=== PATIENT | male | born 1945 | race African-American/Black ===

== ENCOUNTER 2018-12-12 16:56 | Inpatient (IN) | payer MEDICARE ==
--- NOTE | 2018-12-12 17:18 | ED Physician Chart ---
ED Chief Complaint/HPI - Patient Information Date Seen:: 12/12/18 Time Seen:: 17:00 Chief Complaint:: Agitation History of Present Illness:: onset x 3 days of agitation and aggressive behavior; no report of trauma, SIs, H /As, neck pain, C/P, SOB, Abd. Pain, or urinary s/s Historian:: Patient Review:: Nurse's Note Reviewed, Old Chart Reviewed, EMS run form Reviewed <Mina Traore - Last Filed: 12/12/18 17:36> - Patient Information Allergies:: Allergies Allergy/AdvReac Type Severity Reaction Status Date / Time No Known Allergies Allergy Verified 12/12/18 17:21 Vitals:: Vital Signs - 8 hr 12/12/18 17:21 Temp 98.6 F HR 64 RR 20 BP 145/83 O2 Sat % 98 <Pattie Sandoval - Last Filed: 12/12/18 19:25> ED Review of Systems - Review of Systems General/Constitutional: No fever, No chills, No weight loss, No weakness, No diaphoresis, No edema, No loss of appetite Skin: No skin lesions, No rash, No bruising Head: No headache, No light-headedness Eyes: No loss of vision, No pain, No diplopia ENT: No earache, No nasal drainage, No sore throat, No tinnitus Neck: No neck pain, No swelling, No thyromegaly, No stiffness, No mass noted Cardio Vascular: No chest pain, No palpitations, No PND, No orthopnea, No edema Pulmonary: No SOB, No cough, No sputum, No wheezing GI: No nausea, No vomiting, No diarrhea, No pain, No melena, No hematochezia, No constipation, No hematemesis G/U: No dysuria, No frequency, No hematuria, No nacturia Musculoskeletal: No bone or joint pain, No back pain, No muscle pain Endocrine: No polyuria, No polydipsia Psychiatric: No prior psych history, No depression, No anxiety, No suicidal ideation, No homicidal ideation, No auditory hallucination, No visual hallucination Hematopoietic: No bruising, No lymphadenopathy Allergic/Immuno: No urticaria, No angioedema Neurological: No syncope, No focal symptoms, No weakness, No paresthesia, No headache, No seizure, No dizziness, No confusion, No vertigo <Mina Traore Last Filed: 12/12/18 17:36> ED Past Medical History - Past Medical History Obtainable: Yes Past Medical History: HTN, Dyslipidemia, Dementia Family History: HTN Social History: Non Smoker, No Alcohol, No Drug Use, Single, Care Facility Surgical History: None Psychiatricy History: Bipolar, Dementia Medication: Reviewed <Mina Traore Filed: 12/12/18 17:36> Family Medical History - Family Member Father History Unknown: Yes <Mina Traore Filed: 12/12/18 17:36> ED Physical Exam - Physical Examination General/Constitutional: Awake, Well-developed, well-nourished, Alert, No distress, GCS 15, Non-toxic appearing, Ambulatory Head: Atraumatic Eyes: Lids, conjuctiva normal, PERRL, EOMI Skin: Nl inspection, No rash, No skin lesions, No ecchymosis, Well hydrated, No lymphadenopathy ENMT: External ears, nose nl, TM canals nl, Nasal exam nl, Lips, teeth, gums nl , Oropharynx nl, Tonsils nl Neck: Nontender, Full ROM w/o pain, No JVD, No nuchal rigidity, No bruit, No mass, No stridor Other Neck comments:: supple; no meningeal signs; no cervical tenderness; no bruits Respiratory: Nl effort/Exclusion, Clear to Auscultation, No Wheeze/Rhonchi/Rales Cardio Vascular: RRR, No murmur, gallop, rubs, NL S1 S2, Carotid/Femoral/Distal pulses equal bilaterally GI: No tenderness/rebounding/guarding, No organomegaly, No hernia, Normal BS's, Nondistended, No mass/bruits, No McBurney tenderness Other GI comments:: no pulsatile masses : No CVA tenderness Extremities: No tenderness or effusion, Full ROM, normal strength in all extremities, No edema, Normal digits & nails Neuro/Psych: Alert/oriented, DTR's symmetric, Normal sensory exam, Normal motor strength, Judgement/insight normal, Mood normal, Normal gait, No focal deficits Other Neuro/Psych comments:: + Psychomotor Agitation; no SIs; Mood/Affect: Labile Misc: Normal back, No paraspinal tenderness <Mina Traore - Last Filed: 12/12/18 17:36> ED Labs/Radiology/EKG Results - Lab Results Comments:: Reviewed - EKG Interpretations EKG Time:: 17:22 Rate & Rhythm: 64; NSR Comments:: LVH; non-specific st-t changes <Mina Traore - Last Filed: 12/12/18 17:36> - Lab Results Results: Laboratory Tests 12/12/18 12/12/18 12/12/18 17:30 17:30 17:30 WBC 6.5 RBC 4.21 Hgb 11.1 L Hct 33.6 L MCV 79.8 L MCH 26.4 L MCHC Differential 33.1 RDW 15.4 Plt Count 116 L MPV 9.3 Neutrophils % 60.1 Lymphocytes % 22.6 Monocytes % 12.1 H Eosinophils % 4.6 Basophils % 0.6 Sodium 139 Potassium 4.6 Chloride 110 H Carbon Dioxide 19.8 L Anion Gap 13.8 BUN 67 H Creatinine 2.9 H Est GFR ( Amer) TNP Est GFR (Non-Af Amer) TNP BUN/Creatinine Ratio 23.1 Glucose 119 H Calcium 9.1 Total Bilirubin 0.3 AST 14 ALT 14 Alkaline Phosphatase 358 H Troponin I 0.03 Total Protein 6.2 Albumin 3.4 L Globulin 2.8 Albumin/Globulin Ratio 1.2 Triglycerides 56 Cholesterol 99 LDL Cholesterol Direct 44 L HDL Cholesterol 40 Salicylates < 25.0 L Acetaminophen < 10.0 L Ethyl Alcohol < 10 <Pattie Sandoval - Last Filed: 12/12/18 19:25> ED Assessment - Assessment General Assessment: DEHYDRATION RENAL INSUFF <Pattie Sandoval - Last Filed: 12/12/18 19:25> ED Septic Shock - . Is Septic Shock (SBP<90, OR Lactate>4 mmol\L) present?: No <Mina Traore - Last Filed: 12/12/18 17:36> - <6hrs of presentation: Vital Signs: Vital Signs - 8 hr 12/12/18 17:21 Temp 98.6 F HR 64 RR 20 BP 145/83 O2 Sat % 98 <Pattie Sandoval - Last Filed: 12/12/18 19:25> ED Reassessment (Disposition) - Reassessment Reassessment Condition:: Improved - Diagnosis Diagnosis:: Agitation; Medical Clearance <Mina Traore - Last Filed: 12/12/18 17:36> - Aftercare/Follow up Instructions Notes:: PT GIVEN NS FLUIDS FOR AZOTEMIA PRERENAL - Patient Disposition Discharge/Transfer:: Acute Care w/in this hosp Condition at Disposition:: Stable <Pattie Sandoval - Last Filed: 12/12/18 19:25>
[2018-12-12 17:44] LABS: % BASOPHILS 0.6 % (0.0-2.0); % EOSINOPHILS 4.6 % (0.0-5.0); % LYMPHOCYTES 22.6 % (20.0-50.0); % MONOCYTES 12.1 % (2.0-10.0); % NEUTROPHILS 60.1 % (40.0-80.0); EOSINOPHILE ABSOLUTE 0.3 Th/cmm (0.1-0.4); HEMATOCRIT 33.6 % (41.0-60); HEMOGLOBIN 11.1 gm/dL (12-16); LYMPHOCYTE ABSOLUTE 1.5 Th/cmm (1.5-3.0); MEAN CELL VOLUME 79.8 fl (80-99); MEAN CORPUSCULAR HEMOGLOBIN 26.4 pg (27.0-31.0); MEAN CORPUSCULAR HGB CONC 33.1 pg (28.0-36.0); MEAN PLATELET VOLUME 9.3 fl; MONOCYTE ABSOLUTE 0.8 Th/cmm (0.3-1.0); NEUTROPHILE ABSOLUTE 3.9 Th/cmm (1.8-8.0); PLATELET COUNT 116 Th/cmm (150-400); RED BLOOD COUNT 4.21 Mil/cmm (3.80-5.80); RED CELL DISTRIBUTION WIDTH 15.4 % (11.5-20.0); WHITE BLOOD COUNT 6.5 Th/cmm (4.8-10.8)
[2018-12-12 18:19] LABS: ALB/GLOB RATIO 1.2 (1.0-1.8); ALBUMIN 3.4 gm/dL (4.2-5.5); ALKALINE PHOSPHATASE 358 U/L (34-104); ANION GAP 13.8 (7.0-16.0); BILIRUBIN,TOTAL 0.3 mg/dL (0.3-1.0); BUN - UREA NITROGEN 67 mg/dL (7-25); CALCIUM SERUM 9.1 mg/dL (8.6-10.3); CARBON DIOXIDE 19.8 mEq/L (21.0-31.0); CHLORIDE 110 mEq/L (98-107); CHOLESTEROL 99 mg/dL (<200); CREATININE - SERUM 2.9 mg/dL (0.7-1.3); GLUCOSE 119 mg/dL (70-105); HDL -HIGH DENSITY LIPOPROTEIN 40 mg/dL (23-92); POTASSIUM SERUM 4.6 mEq/L (3.5-5.1); SGOT 14 U/L (13-39); SGPT/ALT 14 U/L (7-52); SODIUM SERUM 139 mEq/L (136-145); TOTAL PROTEIN,SERUM 6.2 gm/dL (6.0-8.3); TRIGLYCERIDES 56 mg/dL (<150)
[2018-12-12 18:23] LABS: ACETAMINOPHEN < 10.0 ug/mL (10.0-30.0); SALICYLATES (ASPIRIN) < 25.0 mg/L (30.0-100.0)
[2018-12-12] MEDS ORDERED: Sodium Chloride 0.9% 1,000 ML IV ONE ×2 (19:20)
[2018-12-12] MEDS ORDERED: Sodium Chloride 0.9% 250 ML IV ONE (19:20)
[2018-12-12 19:56] LABS: URINE SOURCE CLEAN C
[2018-12-12 20:11] LABS: URINE BILIRUBIN NEGATIVE (NEGATIVE); URINE BLOOD NEGATIVE (NEGATIVE); URINE GLUCOSE (UA) NEGATIVE (NEGATIVE); URINE KETONE NEGATIVE (NEGATIVE); URINE LEUKOCYTE ESTERASE SMALL (NEGATIVE); URINE NITRATE NEGATIVE (NEGATIVE); URINE PROTEIN NEGATIVE (NEGATIVE); URINE UROBILINOGEN 0.2 E.U./dL (0.2 - 1.0)
[2018-12-12 20:30] LABS: URINE CLARITY CLEAR (CLEAR); URINE COLOR YELLOW; URINE MICROSCOPIC INDICATED? YES
[2018-12-12 20:39] LABS: AMPHETAMINE URINE NEGATIVE (NEGATIVE); BARBITURATES URINE NEGATIVE (NEGATIVE); BENZODIAZEPINES QUAL URINE NEGATIVE (NEGATIVE); CANNABINOID THC NEGATIVE (NEGATIVE); COCAINE METABOLITE QUAL URINE NEGATIVE (NEGATIVE); METHADONE URINE NEGATIVE (NEGATIVE); METHAMPHETAMINES QUAL URINE NEGATIVE (NEGATIVE); OPIATES (MORPHINE) QUAL. URINE NEGATIVE (NEGATIVE); PHENCYCLIDINE (PCP) URINE NEGATIVE (NEGATIVE); TRICYCLICS (TCA) QUAL. URINE NEGATIVE (NEGATIVE)
[2018-12-12] MEDS ORDERED: cefTRIAXone 1 GM in Sodium Chloride 0.9% 50 ML IV ONE (20:39)
[2018-12-12 20:47] LABS: URINE RBC NONE SEEN /hpf (0-5); URINE WBC 0-2 /hpf (0-5)
[2018-12-12 20:48] LABS: URINE BACTERIA OCCASIONAL /hpf (NONE SEEN); URINE EPITHELIAL CELLS NONE SEEN /lpf (FEW)
[2018-12-12 22:33] VITALS: BP 136/84
[2018-12-13] MEDS ORDERED: Maalox 30 mL Cup PO PRN (11:58)
[2018-12-13] MEDS ORDERED: Magnesium Hydroxide (MOM) 30 mL UDC PO PRN (11:58)
[2018-12-13] MEDS ORDERED: Dextrose 50% 50 mL Abboject IVP PRN (12:07)
[2018-12-13] MEDS ORDERED: GLUCAGON HCl 1 MG KIT IM PRN (12:07)
--- NOTE | 2018-12-13 13:13 | History & Physical ---
ADMIT DATE: 12/12/2018 CHIEF COMPLAINT: Medical evaluation and clearance. HISTORY OF PRESENT ILLNESS: This is a 73-year-old -[place] male with history of diabetes, hypertension, hypercholesterolemia, anemia, admitted under the service of Dr. Serrato. The patient is a poor historian. Denies any fevers, chills, night sweats, weight loss, or chest pain. PAST MEDICAL HISTORY: As mentioned in history of present illness. PAST SURGICAL HISTORY: Unable to tell me any other surgical history. ALLERGIES: No known drug allergies. MEDICATIONS: Aripiprazole, Haldol, Tylenol, Norvasc, Calcitriol, Colace, famotidine, iron, Lantus, Tradjenta, ____, Cozaar, and magnesium, Namenda, multivitamins, omega 3. FAMILY HISTORY: Noncontributory. SOCIAL HISTORY: The patient is a longterm patient, requiring 24-hour total care. The patient states that he is a smoker and drinker. REVIEW OF SYSTEMS: This is limited secondary to the patient's current mental state. We will try to obtain more detailed review of systems at a later date by talking to family members, not listed on case sheet. We will try to get information from facility in [place], #[phone]. PHYSICAL EXAMINATION: VITAL SIGNS: Blood pressure 140/80, respirations 20, pulse 70, and temperature 98.0. GENERAL: Elderly male, appears chronically ill. NECK: Supple. No mass. LUNGS: Equal breath sounds; otherwise, clear to auscultation. HEART: Regular rate and rhythm with systolic ejection murmur. ABDOMEN: Soft, globular. EXTREMITIES: Positive excoriations. NEUROLOGIC: Limited. LABORATORY DATA: WBC 6, hemoglobin 11, platelets 116. Sodium 139, potassium 4.6, BUN 67, creatinine 2.9, and blood sugar 118, ____. Albumin 3.4. Small leukocytes. Otherwise negative urine toxicology. ASSESSMENT AND PLAN: Anemia, renal insufficiency, hypercholesterolemia, hypertension, diabetes, thrombocytopenia. We will continue the patient on ADA diet and insulin sliding scale. We will continue with fingersticks before meals and at bedtime. We will briefly review the patient's medications. We will monitor for any signs or symptoms of hypoglycemia. Case was discussed with the patient as well as nursing staff. We will continue to follow with you Dr. Serrato. JOB# [id number]
[2018-12-13] MEDS: Ferrous Sulfate 325 MG TAB PO SCH (16:29)
[2018-12-13] MEDS: Calcium Carb/Vit D 500 mg/200 U Tab PO SCH (16:29)
[2018-12-13] MEDS: Fish Oil 1,000 MG SGL PO SCH (16:29)
[2018-12-13] MEDS: Insulin Glargine 100 units/ml 10ml Vial SUBQ SCH (16:30)
[2018-12-13] MEDS: INSULIN LISPRO SLIDING SCALE 100 UNITS/ML UNIT SUBQ SCH ×2 (16:46→21:33)
[2018-12-14] MEDS: INSULIN LISPRO SLIDING SCALE 100 UNITS/ML UNIT SUBQ SCH ×4 (06:41→21:38)
[2018-12-14] MEDS: Fish Oil 1,000 MG SGL PO SCH ×2 (08:14→16:52)
[2018-12-14] MEDS: Ferrous Sulfate 325 MG TAB PO SCH ×2 (08:14→16:53)
[2018-12-14] MEDS: Calcium Carb/Vit D 500 mg/200 U Tab PO SCH ×2 (08:32→16:52)
[2018-12-14] MEDS: Insulin Glargine 100 units/ml 10ml Vial SUBQ SCH ×2 (08:33→16:53)
[2018-12-14] MEDS: Multivitamin Tab PO SCH (08:52)
--- NOTE | 2018-12-14 11:44 | Psychiatric Evaluation ---
DATE OF SERVICE: 12/12/2018 IDENTIFYING DATA: The patient is a ____[id number] -[place] ____ on a conservatorship, admitted over here for acute agitation and inappropriate behavior. CHIEF COMPLAINT: "I don't care. I need to go home." HISTORY OF PRESENT ILLNESS: This is the first psychiatric hospitalization to [facility] for this patient who is reported to have been acting very erratic and has been displaying inappropriate behavior such as masturbating and the patient has also been reported to have been losing lot of weight. The patient has been seen by the ____ longterm where he came from, and the patient is reported to have been getting aggressive and for the past couple of weeks and is also been displaying inappropriate behavior and is losing weight and the patient at this time not providing much of information and the patient has been stating that he needs to go back to his place. The patient is responding to internal stimuli. Sleep and appetite prior to the hospitalization are reported to be poor. PAST PSYCHIATRIC HISTORY: Details are not known. MEDICAL HISTORY: Physical examination is requested to be done by Dr. Sabillon. SUBSTANCE ABUSE HISTORY: None. PHYSICAL OR SEXUAL ABUSE HISTORY: None at this time. STRENGTH AND ASSETS: The patient is motivated. MENTAL STATUS EXAMINATION: The patient is a ____[id number], looking stated age, superficially cooperative. Eye contact is poor. Mood is noted to be irritable. Affect is constricted. Insight and judgment at this time are noted to be still impaired. Impulse control is noted to be poor. Details about the prior patient's medications are not known at this time. The patient has been getting easily upset when I am asking the details of the medications. The patient is going to be started on a very low dose of the Seroquel at this time for the aggressive behavior and the patient is going to be followed and the patient's short and long-term are noted to be poor. The patient's attention span and concentration are noted to be poor. The patient has been getting easily frustrated and agitated. DIAGNOSTIC IMPRESSION: AXIS I: Psychotic disorder, not otherwise specified. IB: Dementia and behavioral change, secondary trait. AXIS II: None. AXIS III: As per Dr. Sabillon. IMMEDIATE TREATMENT PLAN: The patient is going to be observed with the medication changes and followed up with supportive therapy. [facility]# [id number]
--- NOTE | 2018-12-14 12:10 | Internal Medicine Prog Note ---
Internal Medicine Subjective - Subjective Patient seen and examined:: with staff, chart reviewed Patient is:: asleep, eyes closed, in bed, denies any new complaints, confused Per staff patient has:: no adverse event, no episodes of fall, poor appetite, unstable gait, tolerating meds Internal Medicine Objective - Results Result Diagrams: 12/12/18 17:30 12/12/18 17:30 Recent Labs: Laboratory Last Values WBC 6.5 Th/cmm (4.8-10.8) 12/12/18 17:30 RBC 4.21 Mil/cmm (3.80-5.80) 12/12/18 17:30 Hgb 11.1 gm/dL (12-16) L 12/12/18 17:30 Hct 33.6 % (41.0-60) L 12/12/18 17:30 MCV 79.8 fl (80-99) L 12/12/18 17:30 MCH 26.4 pg (27.0-31.0) L 12/12/18 17: MCHC Differential 33.1 pg (28.0-36.0) 12/12/18 17:30 RDW 15.4 % (11.5-20.0) 12/12/18 17: Plt Count 116 Th/cmm (150-400) L 12/12/18 17:30 MPV 9.3 fl 12/12/18 17:30 Neutrophils % 60.1 % (40.0-80.0) 12/12/18 17:30 Lymphocytes % 22.6 % (20.0-50.0) 12/12/18: Monocytes % 12.1 % (2.0-10.0) H 12/12/18 17:30 Eosinophils % 4.6 % (0.0-5.0) 12/12/18 17: Basophils % 0.6 % (0.0-2.0) 12/12/18 17:30 Sodium 139 mEq/L (136-145) 12/12/18 17:30 Potassium 4.6 mEq/L (3.5-5.1) 12/12/18 17:30 Chloride 110 mEq/L (98-107) H 12/12/18 17:30 Carbon Dioxide 19.8 mEq/L (21.0-31.0) L 04/15/19 17:30 Anion Gap 13.8 (7.0-16.0) 12/12/18 17:30 BUN 67 mg/dL (7-25) H 12/12/18 17:30 Creatinine 2.9 mg/dL (0.7-1.3) H 12/12/18 17:30 Est GFR ( Amer) TNP 12/12/18 17:30 Est GFR (Non-Af Amer) TNP 12/12/18 17:30 BUN/Creatinine Ratio 23.1 12/12/18 17:30 Glucose 119 mg/dL (70-105) H 12/12/18 17:30 POC Glucose 78 MG/DL (70 - 105) 12/14/18 11:29 Calcium 9.1 mg/dL (8.6-10.3) 12/12/18 17:30 Total Bilirubin 0.3 mg/dL (0.3-1.0) 12/12/18 17:30 AST 14 U/L (13-39) 12/12/18 17:30 ALT 14 U/L (7-52) 12/12/18 17:30 Alkaline Phosphatase 358 U/L (34-104) H 12/12/18 17:30 Troponin I 0.03 ng/mL (0.01-0.05) 12/12/18 17:30 Total Protein 6.2 gm/dL (6.0-8.3) 12/12/18 17:30 Albumin 3.4 gm/dL (4.2-5.5) L 12/12/18 17:30 Globulin 2.8 gm/dL 12/12/18 17:30 Albumin/Globulin Ratio 1.2 (1.0-1.8) 12/12/18 17:30 Triglycerides 56 mg/dL (<150) 12/12/18 17:30 Cholesterol 99 mg/dL (<200) 12/12/18 17:30 LDL Cholesterol Direct 44 mg/dL (75-193) L 12/12/18 17:30 HDL Cholesterol 40 mg/dL (23-92) 12/12/18 17:30 TSH 1.48 uIU/ml (0.34-5.60) 12/12/18 17:30 Urine Source CLEAN C 12/12/18 18:40 Urine Color YELLOW 12/12/18 18:40 Urine Clarity CLEAR (CLEAR) 12/12/18 18:40 Urine pH 6.0 (4.6 - 8.0) 12/12/18 18:40 Ur Specific [place] <= 1.005 (1.005-1.030) 12/12/18 18:40 Urine Protein NEGATIVE mg/dL (NEGATIVE) 12/12/18 18:40 Urine Glucose (UA) NEGATIVE mg/dL (NEGATIVE) 12/12/18 18:40 Urine Ketones NEGATIVE mg/dL (NEGATIVE) 12/12/18 18:40 Urine Blood NEGATIVE (NEGATIVE) 12/12/18 18:40 Urine Nitrate NEGATIVE (NEGATIVE) 12/12/18 18:40 Urine Bilirubin NEGATIVE (NEGATIVE) 12/12/18 18:40 Urine Urobilinogen 0.2 E.U./dL (0.2 - 1.0) 12/12/18 18:40 Ur Leukocyte Esterase SMALL (NEGATIVE) H 12/12/18 18:40 Urine RBC NONE SEEN /hpf (0-5) 12/12/18 18:40 Urine WBC 0-2 /hpf (0-5) 12/12/18 18:40 Ur Epithelial Cells NONE SEEN /lpf (FEW) 12/12/18 18:40 Urine Bacteria OCCASIONAL /hpf (NONE SEEN) 12/12/18 18:40 Salicylates < 25.0 mg/L (30.0-100.0) L 12/12/18 17:30 Urine Opiates Screen NEGATIVE (NEGATIVE) 12/12/18 18:40 Urine Methadone Screen NEGATIVE (NEGATIVE) 12/12/18 18:40 Acetaminophen < 10.0 ug/mL (10.0-30.0) L 12/12/18 17:30 Ur Barbiturates Screen NEGATIVE (NEGATIVE) 12/12/18 18:40 Ur Tricyclics Screen NEGATIVE (NEGATIVE) 12/12/18 18:40 Ur Phencyclidine Scrn NEGATIVE (NEGATIVE) 12/12/18 18:40 Amphetamines Screen NEGATIVE (NEGATIVE) 12/12/18 18:40 U Methamphetamines Scrn NEGATIVE (NEGATIVE) 12/12/18 18:40 U Benzodiazepines Scrn NEGATIVE (NEGATIVE) 12/12/18 18:40 U Cocaine Metab Screen NEGATIVE (NEGATIVE) 12/12/18 18:40 U Cannabinoids Screen NEGATIVE (NEGATIVE) 12/12/18 18:40 Ethyl Alcohol < 10 mg/dL (0-10) 12/12/18 17:30 - Physical Exam Vitals and I&O: Vital Signs Temp 98.2 F 12/14/18 04:47 Pulse 68 12/14/18 08:51 Resp 20 12/14/18 04:47 BP 137/82 12/14/18 08:51 Pulse Ox 98 12/14/18 04:47 Intake & Output 12/13/18 12/14/18 12/14/18 18:59 06:59 18:59 Intake Total 1600 240 Balance 1600 240 Intake: Oral 1600 240 Other: # Voids 4 2 # Bowel Movements 0 0 Active Medications: Current Medications Acetaminophen (Tylenol) 650 mg PO Q4H PRN PRN Reason: pain/ fever>100 Al Hydrox/Mg Hydrox/Simethicone (Maalox) 30 ml PO Q4H PRN PRN Reason: gi upset Stop: 02/11/19 11:57 Amlodipine Besylate (Norvasc) 10 mg PO DAILY TAMIA Stop: 02/12/19 08:59 Last Admin: 12/14/18 08:18 Dose: 10 mg Calcitriol (Rocaltrol) 0.25 mcg PO MWF TAMIA Stop: 02/12/19 08:59 Last Admin: 12/14/18 08:51 Dose: 0.25 mcg Calcium/Vitamin D (Oscal W/Vitamin D) 1 tab PO BID TAMIA Stop: 02/11/19 16:59 Last Admin: 12/14/18 08:32 Dose: 1 tab Dextrose (D50w) 50 ml IVP PRN PRN PRN Reason: BS below 70&not tolerate po Stop: 02/11/19 12:06 Dextrose (Glutose 40%) 18.75 gm PO PRN PRN PRN Reason: BS below 70 & tolerate po Stop: 02/11/19 12:06 Docusate Sodium (Colace) 100 mg PO BID TAMIA Stop: 02/11/19 16:59 Last Admin: 12/14/18 08:33 Dose: 100 mg Famotidine (Pepcid) 20 mg PO DAILY TAMIA Stop: 02/12/19 08:59 Last Admin: 12/14/18 08:51 Dose: 20 mg Ferrous Sulfate (Iron) 325 mg PO BID TAMIA Stop: 02/11/19 16:59 Last Admin: 12/14/18 08:14 Dose: 325 mg Fish Oil ([place] 3) 1,000 mg PO BID TAMIA Stop: 02/11/19 16:59 Last Admin: 12/14/18 08:14 Dose: 1,000 mg Glucagon (Glucagen) 1 mg IM PRN PRN PRN Reason: BS below 70&dextrose ineffecti Stop: 02/11/19 12:06 Insulin Glargine (Lantus Insulin) 6 units SUBQ BID TAMIA Stop: 02/11/19 16:59 Last Admin: 12/14/18 08:33 Dose: 6 units Insulin Human Lispro (Humalog Insulin Sliding Scale) 0 units SUBQ ACHS TAMIA; Protocol Stop: 02/11/19 16:29 Last Admin: 12/14/18 11:34 Dose: Not Given Lorazepam (Ativan) 0.5 mg PO Q4HR PRN; Protocol PRN Reason: Anxiety Stop: 01/11/19 22:32 Last Admin: 12/14/18 08:14 Dose: 0.5 mg Losartan Potassium (Cozaar) 25 mg PO DAILY TAMIA Stop: 02/12/19 08:59 Last Admin: 12/14/18 08:51 Dose: 25 mg Magnesium Hydroxide (Milk Of Magnesia) 30 ml PO HS PRN PRN Reason: Constipation Stop: 02/11/19 11:57 Memantine (Namenda) 5 mg PO DAILY TAMIA Stop: 02/12/19 08:59 Last Admin: 12/14/18 08:52 Dose: 5 mg Multivitamins/Vitamin C (Theragran) 1 tab PO DAILY TAMIA Stop: 02/12/19 08:59 Last Admin: 12/14/18 08:52 Dose: 1 tab Quetiapine Fumarate (Seroquel) 12.5 mg PO HS TAMIA; Protocol Stop: 02/11/19 20:59 Zolpidem Tartrate (Ambien) 5 mg PO HS PRN PRN Reason: Insomnia Stop: 02/10/19 22:32 Last Admin: 12/13/18 21:34 Dose: 5 mg General: demented HEENT: NC/AT, PERRLA, EOMI Neck: Supple, No JVD Lungs: CTAB Cardiovascular: RRR, Normal S1, Normal S2 Abdomen: soft, non-tender, globular, positive bowel sound Extremities: excoriation, contracture Neurological: no change Internal Medicine Assmt/Plan - Assessment Assessment: ASSESSMENT AND PLAN: Anemia, renal insufficiency, hypercholesterolemia, hypertension, diabetes, thrombocytopenia. bedbound - Plan Plan: PLAN: We will continue the patient on ADA diet and insulin sliding scale. We will continue with fingersticks before meals and at bedtime. We will briefly review the patient's medications. We will monitor for any signs or symptoms of hypoglycemia. Case was discussed with the patient as well as nursing staff. We will continue to follow closely
--- NOTE | 2018-12-15 08:34 | Consultation ---
DATE OF CONSULTATION: 12/14/2018 REFERRING PHYSICIAN: Kimo Mckenna M.D. TYPE OF CONSULTATION: Psychology. HISTORY OF PRESENT ILLNESS: The patient is a 73-year-old -[place] male. The following is by record review as well as by the patient's self report. The patient is being admitted due to acute agitation and sexually inappropriate behavior. The patient is on conservatorship. The staff at the patient's facility reports that the patient had been exhibiting public masturbation at his placement. The staff at his facility also reported he had become increasingly aggressive toward other residents as well as staff. Upon interview, the patient is not making much sense. The patient is stating that he does not care to answer any questions and needs to go home. The patient may possibly be responding to internal stimuli. The patient did not answer questions about suicidal ideation, plan or intention at the time of this clinical interview. PAST MEDICAL HISTORY: Please see history and physical by Dr. Sabillon. PAST PSYCHIATRIC HISTORY: Records are unavailable. Details are unknown. SUBSTANCE ABUSE HISTORY: The patient declined to answer these questions. PSYCHOSOCIAL HISTORY: The patient did not answer questions about occupational or educational history or about marital status or family members involved in his care. The patient did not answer questions about having a history of physical or sexual abuse. The patient did not answer questions about current legal problems. The patient appears to be quite confused. The patient is denying his aggressive behavior as well as displaying public masturbation. MENTAL STATUS EXAMINATION: The patient appears to be older than his stated age. Attitude is uncooperative. Eye contact is poor. Mood is irritable. Affect is constricted. Thought process shows to be concrete and somewhat confused. The patient is not making much sense. The patient is denying the behaviors that staff had reported. The patient did not answer questions about suicidal ideation, plan or intention. The patient did not answer questions about experiencing auditory or visual hallucinations. The patient is getting easily upset during the clinical interview. Impulse control is inadequate. Concentration is noted to be poor. The patient did not participate in the memory assessment and became increasingly frustrated. Sensorium is alert and oriented to self only. The patient did not participate in the interpretation of proverbs and continued to refuse to answer clinical interview questions. Insight is impaired. Judgment is impaired. DIAGNOSTIC IMPRESSION: AXIS I: 1. Psychotic disorder, not otherwise specified. 2. Dementia with behavioral disturbance. AXIS II: Deferred. AXIS III: Per Dr. Sabillon. TREATMENT PLAN: The patient has been seen by Dr. Mckenna for psychiatric evaluation and further management of the patient's psychotropic medications. We will provide supportive psychotherapy to include reality orientation, differentiation and integration. We will provide de-escalation and limit setting. We will provide motivational enhancement for the patient to follow through with staff direction and to become compliant and to stay compliant with all aspects of his care and treatment. We will provide coping strategies for phase of life issues as well as for chronic severe mental illness. We will encourage the patient to demonstrate emotional and self-regulation and to verbalizes concerns versus acting out and specifically inappropriate sexual behaviors. Thank you, Dr. Mckenna, for this consult and the opportunity to participate in this patient's care. JOB# [id number] MTDD
[2018-12-15] MEDS: INSULIN LISPRO SLIDING SCALE 100 UNITS/ML UNIT SUBQ SCH ×4 (08:56→21:59)
[2018-12-15] MEDS: Multivitamin Tab PO SCH (09:13)
[2018-12-15] MEDS: Fish Oil 1,000 MG SGL PO SCH ×2 (09:13→17:59)
[2018-12-15] MEDS: Ferrous Sulfate 325 MG TAB PO SCH ×2 (09:14→18:00)
[2018-12-15] MEDS: Calcium Carb/Vit D 500 mg/200 U Tab PO SCH ×2 (09:15→17:59)
[2018-12-15] MEDS: Insulin Glargine 100 units/ml 10ml Vial SUBQ SCH ×2 (09:17→17:19)
--- NOTE | 2018-12-15 11:46 | Internal Medicine Prog Note ---
Internal Medicine Subjective - Subjective Patient seen and examined:: with staff, chart reviewed Patient is:: asleep, eyes closed, in bed, denies any new complaints, confused Per staff patient has:: no adverse event, no episodes of fall, poor appetite, unstable gait, tolerating meds Internal Medicine Objective - Results Result Diagrams: 12/12/18 17:30 12/12/18 17:30 Recent Labs: Laboratory Last Values WBC 6.5 Th/cmm (4.8-10.8) 12/12/18 17:30 RBC 4.21 Mil/cmm (3.80-5.80) 12/12/18 17:30 Hgb 11.1 gm/dL (12-16) L 12/12/18 17:30 Hct 33.6 % (41.0-60) L 12/12/18 17:30 MCV 79.8 fl (80-99) L 12/12/18 17:30 MCH 26.4 pg (27.0-31.0) L 12/12/18 17: MCHC Differential 33.1 pg (28.0-36.0) 12/12/18 17:30 RDW 15.4 % (11.5-20.0) 12/12/18 17: Plt Count 116 Th/cmm (150-400) L 12/12/18 17:30 MPV 9.3 fl 12/12/18 17:30 Neutrophils % 60.1 % (40.0-80.0) 12/12/18 17:30 Lymphocytes % 22.6 % (20.0-50.0) 12/12/18: Monocytes % 12.1 % (2.0-10.0) H 12/12/18 17:30 Eosinophils % 4.6 % (0.0-5.0) 12/12/18 17: Basophils % 0.6 % (0.0-2.0) 12/12/18 17:30 Sodium 139 mEq/L (136-145) 12/12/18 17:30 Potassium 4.6 mEq/L (3.5-5.1) 12/12/18 17:30 Chloride 110 mEq/L (98-107) H 12/12/18 17:30 Carbon Dioxide 19.8 mEq/L (21.0-31.0) L 04/15/19 17:30 Anion Gap 13.8 (7.0-16.0) 12/12/18 17:30 BUN 67 mg/dL (7-25) H 12/12/18 17:30 Creatinine 2.9 mg/dL (0.7-1.3) H 12/12/18 17:30 Est GFR ( Amer) TNP 12/12/18 17:30 Est GFR (Non-Af Amer) TNP 12/12/18 17:30 BUN/Creatinine Ratio 23.1 12/12/18 17:30 Glucose 119 mg/dL (70-105) H 12/12/18 17:30 POC Glucose 98 MG/DL (70 - 105) 12/15/18 06:51 Calcium 9.1 mg/dL (8.6-10.3) 12/12/18 17:30 Total Bilirubin 0.3 mg/dL (0.3-1.0) 12/12/18 17:30 AST 14 U/L (13-39) 12/12/18 17:30 ALT 14 U/L (7-52) 12/12/18 17:30 Alkaline Phosphatase 358 U/L (34-104) H 12/12/18 17:30 Troponin I 0.03 ng/mL (0.01-0.05) 12/12/18 17:30 Total Protein 6.2 gm/dL (6.0-8.3) 12/12/18 17:30 Albumin 3.4 gm/dL (4.2-5.5) L 12/12/18 17:30 Globulin 2.8 gm/dL 12/12/18 17:30 Albumin/Globulin Ratio 1.2 (1.0-1.8) 12/12/18 17:30 Triglycerides 56 mg/dL (<150) 12/12/18 17:30 Cholesterol 99 mg/dL (<200) 12/12/18 17:30 LDL Cholesterol Direct 44 mg/dL (75-193) L 12/12/18 17:30 HDL Cholesterol 40 mg/dL (23-92) 12/12/18 17:30 TSH 1.48 uIU/ml (0.34-5.60) 12/12/18 17:30 Urine Source CLEAN C 12/12/18 18:40 Urine Color YELLOW 12/12/18 18:40 Urine Clarity CLEAR (CLEAR) 12/12/18 18:40 Urine pH 6.0 (4.6 - 8.0) 12/12/18 18:40 Ur Specific [place] <= 1.005 (1.005-1.030) 12/12/18 18:40 Urine Protein NEGATIVE mg/dL (NEGATIVE) 12/12/18 18:40 Urine Glucose (UA) NEGATIVE mg/dL (NEGATIVE) 12/12/18 18:40 Urine Ketones NEGATIVE mg/dL (NEGATIVE) 12/12/18 18:40 Urine Blood NEGATIVE (NEGATIVE) 12/12/18 18:40 Urine Nitrate NEGATIVE (NEGATIVE) 12/12/18 18:40 Urine Bilirubin NEGATIVE (NEGATIVE) 12/12/18 18:40 Urine Urobilinogen 0.2 E.U./dL (0.2 - 1.0) 12/12/18 18:40 Ur Leukocyte Esterase SMALL (NEGATIVE) H 12/12/18 18:40 Urine RBC NONE SEEN /hpf (0-5) 12/12/18 18:40 Urine WBC 0-2 /hpf (0-5) 12/12/18 18:40 Ur Epithelial Cells NONE SEEN /lpf (FEW) 12/12/18 18:40 Urine Bacteria OCCASIONAL /hpf (NONE SEEN) 12/12/18 18:40 Salicylates < 25.0 mg/L (30.0-100.0) L 12/12/18 17:30 Urine Opiates Screen NEGATIVE (NEGATIVE) 12/12/18 18:40 Urine Methadone Screen NEGATIVE (NEGATIVE) 12/12/18 18:40 Acetaminophen < 10.0 ug/mL (10.0-30.0) L 12/12/18 17:30 Ur Barbiturates Screen NEGATIVE (NEGATIVE) 12/12/18 18:40 Ur Tricyclics Screen NEGATIVE (NEGATIVE) 12/12/18 18:40 Ur Phencyclidine Scrn NEGATIVE (NEGATIVE) 12/12/18 18:40 Amphetamines Screen NEGATIVE (NEGATIVE) 12/12/18 18:40 U Methamphetamines Scrn NEGATIVE (NEGATIVE) 12/12/18 18:40 U Benzodiazepines Scrn NEGATIVE (NEGATIVE) 12/12/18 18:40 U Cocaine Metab Screen NEGATIVE (NEGATIVE) 12/12/18 18:40 U Cannabinoids Screen NEGATIVE (NEGATIVE) 12/12/18 18:40 Ethyl Alcohol < 10 mg/dL (0-10) 12/12/18 17:30 - Physical Exam Vitals and I&O: Vital Signs Temp 97.3 F 12/15/18 06:45 Pulse 62 12/15/18 09:16 Resp 20 12/15/18 06:45 BP 157/84 12/15/18 09:16 Pulse Ox 100 12/15/18 06:45 Intake & Output 12/14/18 12/15/18 12/15/18 18:59 06:59 18:59 Intake Total 120 Balance 120 Intake: Oral 120 Other: # Voids 2 # Bowel Movements 0 Active Medications: Current Medications Acetaminophen (Tylenol) 650 mg PO Q4H PRN PRN Reason: pain/ fever>100 Al Hydrox/Mg Hydrox/Simethicone (Maalox) 30 ml PO Q4H PRN PRN Reason: gi upset Stop: 02/11/19 11:57 Amlodipine Besylate (Norvasc) 10 mg PO DAILY TAMIA Stop: 02/12/19 08:59 Last Admin: 12/15/18 09:15 Dose: 10 mg Calcitriol (Rocaltrol) 0.25 mcg PO MWF TAMIA Stop: 02/12/19 08:59 Last Admin: 12/14/18 08:51 Dose: 0.25 mcg Calcium/Vitamin D (Oscal W/Vitamin D) 1 tab PO BID TAMIA Stop: 02/11/19 16:59 Last Admin: 12/15/18 09:15 Dose: 1 tab Dextrose (D50w) 50 ml IVP PRN PRN PRN Reason: BS below 70&not tolerate po Stop: 02/11/19 12:06 Dextrose (Glutose 40%) 18.75 gm PO PRN PRN PRN Reason: BS below 70 & tolerate po Stop: 02/11/19 12:06 Docusate Sodium (Colace) 100 mg PO BID TAMIA Stop: 02/11/19 16:59 Last Admin: 12/15/18 09:14 Dose: 100 mg Famotidine (Pepcid) 20 mg PO DAILY TAMIA Stop: 02/12/19 08:59 Last Admin: 12/15/18 09:14 Dose: 20 mg Ferrous Sulfate (Iron) 325 mg PO BID TAMIA Stop: 02/11/19 16:59 Last Admin: 12/15/18 09:14 Dose: 325 mg Fish Oil ([place] 3) 1,000 mg PO BID TAMIA Stop: 02/11/19 16:59 Last Admin: 12/15/18 09:13 Dose: 1,000 mg Glucagon (Glucagen) 1 mg IM PRN PRN PRN Reason: BS below 70&dextrose ineffecti Stop: 02/11/19 12:06 Insulin Glargine (Lantus Insulin) 6 units SUBQ BID TAMIA Stop: 02/11/19 16:59 Last Admin: 12/15/18 09:17 Dose: Not Given Insulin Human Lispro (Humalog Insulin Sliding Scale) 0 units SUBQ ACHS TAMIA; Protocol Stop: 02/11/19 16:29 Last Admin: 12/15/18 08:56 Dose: Not Given Lorazepam (Ativan) 0.5 mg PO Q4HR PRN; Protocol PRN Reason: Anxiety Stop: 01/11/19 22:32 Last Admin: 12/15/18 09:14 Dose: 0.5 mg Losartan Potassium (Cozaar) 25 mg PO DAILY TAIMA Stop: 02/12/19 08:59 Last Admin: 12/15/18 09:16 Dose: 25 mg Magnesium Hydroxide (Milk Of Magnesia) 30 ml PO HS PRN PRN Reason: Constipation Stop: 02/11/19 11:57 Memantine (Namenda) 5 mg PO DAILY TAMIA Stop: 02/12/19 08:59 Last Admin: 12/15/18 09:14 Dose: 5 mg Multivitamins/Vitamin C (Theragran) 1 tab PO DAILY TAMIA Stop: 02/12/19 08:59 Last Admin: 12/15/18 09:13 Dose: 1 tab Quetiapine Fumarate (Seroquel) 25 mg PO HS TAMIA; Protocol Stop: 02/12/19 20:59 Zolpidem Tartrate (Ambien) 5 mg PO HS PRN PRN Reason: Insomnia Stop: 02/10/19 22:32 Last Admin: 12/14/18 21:39 Dose: 5 mg General: demented HEENT: NC/AT, PERRLA, EOMI Neck: Supple, No JVD Lungs: CTAB Cardiovascular: RRR, Normal S1, Normal S2 Abdomen: soft, non-tender, globular, positive bowel sound Extremities: excoriation, contracture Neurological: no change Internal Medicine Assmt/Plan - Assessment Assessment: ASSESSMENT AND PLAN: Anemia, renal insufficiency, hypercholesterolemia, hypertension, diabetes, thrombocytopenia. bedbound - Plan Plan: PLAN: We will continue the patient on ADA diet and insulin sliding scale. We will continue with fingersticks before meals and at bedtime. We will briefly review the patient's medications. We will monitor for any signs or symptoms of hypoglycemia. Case was discussed with the patient as well as nursing staff. We will continue to follow closely
--- NOTE | 2018-12-15 14:44 | Progress Notes ---
DATE: 12/14/2018 SUBJECTIVE: The patient was seen, still confused, anxious, irritable, still disrobe and trying to take his clothes off, has hypersexual behavior, but he is taking his medications. Appetite and sleep are fair. MENTAL STATUS EXAM: Speech is minimal, irrelevant to topic. Affect is superficial, can become irritable easily. The patient still with some paranoia. Insight is limited. ASSESSMENT AND PLAN: We will increase Seroquel to 25 mg p.o. at bedtime. Continue supportive measures. JOB# [id number]
--- NOTE | 2018-12-15 23:26 | Progress Notes ---
DATE: 12/15/2018 SUBJECTIVE: The patient was seen, remains irritable. Continues to have some anger outbursts episodes where he is trying to take his clothes off or expose himself to nursing staff. The patient continues to require redirecting by staff. ASSESSMENT: The patient continues to be paranoid and anxious and could not be cared for at a lower level of care. PLAN: Continue hospitalization and Seroquel was increased to 25 mg p.o. at bedtime. JOB# [id number]
[2018-12-16] MEDS: INSULIN LISPRO SLIDING SCALE 100 UNITS/ML UNIT SUBQ SCH ×4 (06:46→21:09)
[2018-12-16] MEDS: Fish Oil 1,000 MG SGL PO SCH ×2 (08:42→16:20)
[2018-12-16] MEDS: Multivitamin Tab PO SCH (08:44)
[2018-12-16] MEDS: Calcium Carb/Vit D 500 mg/200 U Tab PO SCH ×2 (08:45→16:21)
[2018-12-16] MEDS: Ferrous Sulfate 325 MG TAB PO SCH ×2 (08:45→16:21)
[2018-12-16] MEDS: Insulin Glargine 100 units/ml 10ml Vial SUBQ SCH ×2 (09:55→16:21)
--- NOTE | 2018-12-16 10:33 | Internal Medicine Prog Note ---
Internal Medicine Subjective - Subjective Patient seen and examined:: with staff, chart reviewed Patient is:: asleep, eyes closed, in bed, denies any new complaints, confused Per staff patient has:: no adverse event, no episodes of fall, poor appetite, unstable gait, tolerating meds Internal Medicine Objective - Results Result Diagrams: 12/12/18 17:30 12/12/18 17:30 Recent Labs: Laboratory Last Values WBC 6.5 Th/cmm (4.8-10.8) 12/12/18 17:30 RBC 4.21 Mil/cmm (3.80-5.80) 12/12/18 17:30 Hgb 11.1 gm/dL (12-16) L 12/12/18 17:30 Hct 33.6 % (41.0-60) L 12/12/18 17:30 MCV 79.8 fl (80-99) L 12/12/18 17:30 MCH 26.4 pg (27.0-31.0) L 12/12/18 17: MCHC Differential 33.1 pg (28.0-36.0) 12/12/18 17:30 RDW 15.4 % (11.5-20.0) 12/12/18 17: Plt Count 116 Th/cmm (150-400) L 12/12/18 17:30 MPV 9.3 fl 12/12/18 17:30 Neutrophils % 60.1 % (40.0-80.0) 12/12/18 17:30 Lymphocytes % 22.6 % (20.0-50.0) 12/12/18: Monocytes % 12.1 % (2.0-10.0) H 12/12/18 17:30 Eosinophils % 4.6 % (0.0-5.0) 12/12/18 17: Basophils % 0.6 % (0.0-2.0) 12/12/18 17:30 Sodium 139 mEq/L (136-145) 12/12/18 17:30 Potassium 4.6 mEq/L (3.5-5.1) 12/12/18 17:30 Chloride 110 mEq/L (98-107) H 12/12/18 17:30 Carbon Dioxide 19.8 mEq/L (21.0-31.0) L 04/15/19 17:30 Anion Gap 13.8 (7.0-16.0) 12/12/18 17:30 BUN 67 mg/dL (7-25) H 12/12/18 17:30 Creatinine 2.9 mg/dL (0.7-1.3) H 12/12/18 17:30 Est GFR ( Amer) TNP 12/12/18 17:30 Est GFR (Non-Af Amer) TNP 12/12/18 17:30 BUN/Creatinine Ratio 23.1 12/12/18 17:30 Glucose 119 mg/dL (70-105) H 12/12/18 17:30 POC Glucose 75 MG/DL (70 - 105) 12/16/18 06:32 Calcium 9.1 mg/dL (8.6-10.3) 12/12/18 17:30 Total Bilirubin 0.3 mg/dL (0.3-1.0) 12/12/18 17:30 AST 14 U/L (13-39) 12/12/18 17:30 ALT 14 U/L (7-52) 12/12/18 17:30 Alkaline Phosphatase 358 U/L (34-104) H 12/12/18 17:30 Troponin I 0.03 ng/mL (0.01-0.05) 12/12/18 17:30 Total Protein 6.2 gm/dL (6.0-8.3) 12/12/18 17:30 Albumin 3.4 gm/dL (4.2-5.5) L 12/12/18 17:30 Globulin 2.8 gm/dL 12/12/18 17:30 Albumin/Globulin Ratio 1.2 (1.0-1.8) 12/12/18 17:30 Triglycerides 56 mg/dL (<150) 12/12/18 17:30 Cholesterol 99 mg/dL (<200) 12/12/18 17:30 LDL Cholesterol Direct 44 mg/dL (75-193) L 12/12/18 17:30 HDL Cholesterol 40 mg/dL (23-92) 12/12/18 17:30 TSH 1.48 uIU/ml (0.34-5.60) 12/12/18 17:30 Urine Source CLEAN C 12/12/18 18:40 Urine Color YELLOW 12/12/18 18:40 Urine Clarity CLEAR (CLEAR) 12/12/18 18:40 Urine pH 6.0 (4.6 - 8.0) 12/12/18 18:40 Ur Specific [place] <= 1.005 (1.005-1.030) 12/12/18 18:40 Urine Protein NEGATIVE mg/dL (NEGATIVE) 12/12/18 18:40 Urine Glucose (UA) NEGATIVE mg/dL (NEGATIVE) 12/12/18 18:40 Urine Ketones NEGATIVE mg/dL (NEGATIVE) 12/12/18 18:40 Urine Blood NEGATIVE (NEGATIVE) 12/12/18 18:40 Urine Nitrate NEGATIVE (NEGATIVE) 12/12/18 18:40 Urine Bilirubin NEGATIVE (NEGATIVE) 12/12/18 18:40 Urine Urobilinogen 0.2 E.U./dL (0.2 - 1.0) 12/12/18 18:40 Ur Leukocyte Esterase SMALL (NEGATIVE) H 12/12/18 18:40 Urine RBC NONE SEEN /hpf (0-5) 12/12/18 18:40 Urine WBC 0-2 /hpf (0-5) 12/12/18 18:40 Ur Epithelial Cells NONE SEEN /lpf (FEW) 12/12/18 18:40 Urine Bacteria OCCASIONAL /hpf (NONE SEEN) 12/12/18 18:40 Salicylates < 25.0 mg/L (30.0-100.0) L 12/12/18 17:30 Urine Opiates Screen NEGATIVE (NEGATIVE) 12/12/18 18:40 Urine Methadone Screen NEGATIVE (NEGATIVE) 12/12/18 18:40 Acetaminophen < 10.0 ug/mL (10.0-30.0) L 12/12/18 17:30 Ur Barbiturates Screen NEGATIVE (NEGATIVE) 12/12/18 18:40 Ur Tricyclics Screen NEGATIVE (NEGATIVE) 12/12/18 18:40 Ur Phencyclidine Scrn NEGATIVE (NEGATIVE) 12/12/18 18:40 Amphetamines Screen NEGATIVE (NEGATIVE) 12/12/18 18:40 U Methamphetamines Scrn NEGATIVE (NEGATIVE) 12/12/18 18:40 U Benzodiazepines Scrn NEGATIVE (NEGATIVE) 12/12/18 18:40 U Cocaine Metab Screen NEGATIVE (NEGATIVE) 12/12/18 18:40 U Cannabinoids Screen NEGATIVE (NEGATIVE) 12/12/18 18:40 Ethyl Alcohol < 10 mg/dL (0-10) 12/12/18 17:30 - Physical Exam Vitals and I&O: Vital Signs Temp 97.0 F 12/15/18 20:00 Pulse 80 12/15/18 20:00 Resp 20 12/15/18 20:00 BP 135/70 12/15/18 20:00 Pulse Ox 97 12/15/18 20:00 Intake & Output 12/15/18 12/16/18 12/16/18 18:59 06:59 18:59 Intake Total 1500 Balance 1500 Intake: Oral 1500 Other: # Voids 3 # Bowel Movements 0 Active Medications: Current Medications Acetaminophen (Tylenol) 650 mg PO Q4H PRN PRN Reason: pain/ fever>100 Al Hydrox/Mg Hydrox/Simethicone (Maalox) 30 ml PO Q4H PRN PRN Reason: gi upset Stop: 02/11/19 11:57 Amlodipine Besylate (Norvasc) 10 mg PO DAILY TAMIA Stop: 02/12/19 08:59 Last Admin: 12/16/18 08:42 Dose: Not Given Calcitriol (Rocaltrol) 0.25 mcg PO MWF TAMIA Stop: 02/12/19 08:59 Last Admin: 12/16/18 08:45 Dose: 0.25 mcg Calcium/Vitamin D (Oscal W/Vitamin D) 1 tab PO BID TAMIA Stop: 02/11/19 16:59 Last Admin: 12/16/18 08:45 Dose: 1 tab Dextrose (D50w) 50 ml IVP PRN PRN PRN Reason: BS below 70&not tolerate po Stop: 02/11/19 12:06 Dextrose (Glutose 40%) 18.75 gm PO PRN PRN PRN Reason: BS below 70 & tolerate po Stop: 02/11/19 12:06 Docusate Sodium (Colace) 100 mg PO BID TAMIA Stop: 02/11/19 16:59 Last Admin: 12/16/18 08:45 Dose: 100 mg Famotidine (Pepcid) 20 mg PO DAILY TAMIA Stop: 02/12/19 08:59 Last Admin: 12/16/18 08:44 Dose: 20 mg Ferrous Sulfate (Iron) 325 mg PO BID TAMIA Stop: 02/11/19 16:59 Last Admin: 12/16/18 08:45 Dose: 325 mg Fish Oil ([place] 3) 1,000 mg PO BID TAMIA Stop: 02/11/19 16:59 Last Admin: 12/16/18 08:42 Dose: 1,000 mg Glucagon (Glucagen) 1 mg IM PRN PRN PRN Reason: BS below 70&dextrose ineffecti Stop: 02/11/19 12:06 Insulin Glargine (Lantus Insulin) 6 units SUBQ BID TAMIA Stop: 02/11/19 16:59 Last Admin: 12/15/18 17:19 Dose: Not Given Insulin Human Lispro (Humalog Insulin Sliding Scale) 0 units SUBQ ACHS TAMIA; Protocol Stop: 02/11/19 16:29 Last Admin: 12/16/18 06:46 Dose: Not Given Lorazepam (Ativan) 0.5 mg PO Q4HR PRN; Protocol PRN Reason: Anxiety Stop: 01/11/19 22:32 Last Admin: 12/16/18 09:37 Dose: 0.5 mg Losartan Potassium (Cozaar) 25 mg PO DAILY TAMIA Stop: 02/12/19 08:59 Last Admin: 12/16/18 08:44 Dose: Not Given Magnesium Hydroxide (Milk Of Magnesia) 30 ml PO HS PRN PRN Reason: Constipation Stop: 02/11/19 11:57 Memantine (Namenda) 5 mg PO DAILY TAMIA Stop: 02/12/19 08:59 Last Admin: 12/16/18 08:44 Dose: 5 mg Multivitamins/Vitamin C (Theragran) 1 tab PO DAILY TAMIA Stop: 02/12/19 08:59 Last Admin: 12/16/18 08:44 Dose: 1 tab Quetiapine Fumarate (Seroquel) 25 mg PO HS TAMIA; Protocol Stop: 02/12/19 20:59 Last Admin: 12/15/18 21:34 Dose: 25 mg Zolpidem Tartrate (Ambien) 5 mg PO HS PRN PRN Reason: Insomnia Stop: 02/10/19 22:32 Last Admin: 12/15/18 21:34 Dose: 5 mg General: demented HEENT: NC/AT, PERRLA, EOMI Neck: Supple, No JVD Lungs: CTAB Cardiovascular: RRR, Normal S1, Normal S2 Abdomen: soft, non-tender, globular, positive bowel sound Extremities: excoriation, contracture Neurological: no change Internal Medicine Assmt/Plan - Assessment Assessment: ASSESSMENT AND PLAN: Anemia, renal insufficiency, hypercholesterolemia, hypertension, diabetes, thrombocytopenia. bedbound - Plan Plan: PLAN: We will continue the patient on ADA diet and insulin sliding scale. We will continue with fingersticks before meals and at bedtime. We will briefly review the patient's medications. We will monitor for any signs or symptoms of hypoglycemia. Case was discussed with the patient as well as nursing staff. We will continue to follow closely
--- NOTE | 2018-12-16 23:17 | Progress Notes ---
DATE: 12/16/2018 SUBJECTIVE: The patient was seen still disorganized, forgetful, confused, still with some irritability, and episodes where he is taking his clothes off, but he is easier to redirect today by staff. He is taking his medications. ASSESSMENT: The patient in psychotic phase. PLAN: Continue stabilization. Continue supportive measures. Continue to monitor closely. JOB# [id number]
[2018-12-17] MEDS: INSULIN LISPRO SLIDING SCALE 100 UNITS/ML UNIT SUBQ SCH ×4 (06:37→20:01)
[2018-12-17] MEDS: Calcium Carb/Vit D 500 mg/200 U Tab PO SCH ×2 (08:50→16:38)
[2018-12-17] MEDS: Multivitamin Tab PO SCH (08:51)
[2018-12-17] MEDS: Ferrous Sulfate 325 MG TAB PO SCH ×2 (08:51→16:38)
[2018-12-17] MEDS: Fish Oil 1,000 MG SGL PO SCH ×2 (08:51→16:38)
[2018-12-17] MEDS: Insulin Glargine 100 units/ml 10ml Vial SUBQ SCH ×2 (08:53→16:57)
--- NOTE | 2018-12-17 10:17 | Internal Medicine Prog Note ---
Internal Medicine Subjective - Subjective Service Date: 12/17/18 Patient is:: asleep, eyes closed, in bed, denies any new complaints, confused Per staff patient has:: no adverse event, no episodes of fall, poor appetite, unstable gait, tolerating meds Internal Medicine Objective - Results Result Diagrams: 12/12/18 17:30 12/12/18 17:30 Recent Labs: Laboratory Last Values WBC 6.5 Th/cmm (4.8-10.8) 12/12/18 17:30 RBC 4.21 Mil/cmm (3.80-5.80) 12/12/18 17:30 Hgb 11.1 gm/dL (12-16) L 12/12/18 17:30 Hct 33.6 % (41.0-60) L 12/12/18 17:30 MCV 79.8 fl (80-99) L 12/12/18 17:30 MCH 26.4 pg (27.0-31.0) L 12/12/18 17: MCHC Differential 33.1 pg (28.0-36.0) 12/12/18 17:30 RDW 15.4 % (11.5-20.0) 12/12/18 17:30 Plt Count 116 Th/cmm (150-400) L 12/12/18 17:30 MPV 9.3 fl 12/12/18 17:30 Neutrophils % 60.1 % (40.0-80.0) 12/12/18 17:30 Lymphocytes % 22.6 % (20.0-50.0) 12/12/18 17:30 Monocytes % 12.1 % (2.0-10.0) H 12/12/18 17:30 Eosinophils % 4.6 % (0.0-5.0) 12/12/18 17:30 Basophils % 0.6 % (0.0-2.0) 12/12/18 17:30 Sodium 139 mEq/L (136-145) 12/12/18 17:30 Potassium 4.6 mEq/L (3.5-5.1) 12/12/18 17:30 Chloride 110 mEq/L (98-107) H 12/12/18 17:30 Carbon Dioxide 19.8 mEq/L (21.0-31.0) L 12/12/18 17:30 Anion Gap 13.8 (7.0-16.0) 12/12/18 17:30 BUN 67 mg/dL (7-25) H 12/12/18 17:30 Creatinine 2.9 mg/dL (0.7-1.3) H 12/12/18 17:30 Est GFR ( Amer) TNP 12/12/18 17:30 Est GFR (Non-Af Amer) TNP 12/12/18 17:30 BUN/Creatinine Ratio 23.1 12/12/18 17:30 Glucose 119 mg/dL (70-105) H 12/12/18 17:30 POC Glucose 132 MG/DL (70 - 105) H 12/16/18 16:08 Calcium 9.1 mg/dL (8.6-10.3) 12/12/18 17:30 Total Bilirubin 0.3 mg/dL (0.3-1.0) 12/12/18 17:30 AST 14 U/L (13-39) 12/12/18 17:30 ALT 14 U/L (7-52) 12/12/18 17:30 Alkaline Phosphatase 358 U/L (34-104) H 12/12/18 17:30 Troponin I 0.03 ng/mL (0.01-0.05) 12/12/18 17:30 Total Protein 6.2 gm/dL (6.0-8.3) 12/12/18 17:30 Albumin 3.4 gm/dL (4.2-5.5) L 12/12/18 17:30 Globulin 2.8 gm/dL 12/12/18 17:30 Albumin/Globulin Ratio 1.2 (1.0-1.8) 12/12/18 17:30 Triglycerides 56 mg/dL (<150) 12/12/18 17:30 Cholesterol 99 mg/dL (<200) 12/12/18 17:30 LDL Cholesterol Direct 44 mg/dL (75-193) L 12/12/18 17:30 HDL Cholesterol 40 mg/dL (23-92) 12/12/18 17:30 TSH 1.48 uIU/ml (0.34-5.60) 12/12/18 17:30 Urine Source CLEAN C 12/12/18 18:40 Urine Color YELLOW 12/12/18 18:40 Urine Clarity CLEAR (CLEAR) 12/12/18 18:40 Urine pH 6.0 (4.6 - 8.0) 12/12/18 18:40 Ur Specific [place] <= 1.005 (1.005-1.030) 12/12/18 18:40 Urine Protein NEGATIVE mg/dL (NEGATIVE) 12/12/18 18:40 Urine Glucose (UA) NEGATIVE mg/dL (NEGATIVE) 12/12/18 18:40 Urine Ketones NEGATIVE mg/dL (NEGATIVE) 12/12/18 18:40 Urine Blood NEGATIVE (NEGATIVE) 12/12/18 18:40 Urine Nitrate NEGATIVE (NEGATIVE) 12/12/18 18:40 Urine Bilirubin NEGATIVE (NEGATIVE) 12/12/18 18:40 Urine Urobilinogen 0.2 E.U./dL (0.2 - 1.0) 12/12/18 18:40 Ur Leukocyte Esterase SMALL (NEGATIVE) H 12/12/18 18:40 Urine RBC NONE SEEN /hpf (0-5) 12/12/18 18:40 Urine WBC 0-2 /hpf (0-5) 12/12/18 18:40 Ur Epithelial Cells NONE SEEN /lpf (FEW) 12/12/18 18:40 Urine Bacteria OCCASIONAL /hpf (NONE SEEN) 12/12/18 18:40 Salicylates < 25.0 mg/L (30.0-100.0) L 12/12/18 17:30 Urine Opiates Screen NEGATIVE (NEGATIVE) 12/12/18 18:40 Urine Methadone Screen NEGATIVE (NEGATIVE) 12/12/18 18:40 Acetaminophen < 10.0 ug/mL (10.0-30.0) L 12/12/18 17:30 Ur Barbiturates Screen NEGATIVE (NEGATIVE) 12/12/18 18:40 Ur Tricyclics Screen NEGATIVE (NEGATIVE) 12/12/18 18:40 Ur Phencyclidine Scrn NEGATIVE (NEGATIVE) 12/12/18 18:40 Amphetamines Screen NEGATIVE (NEGATIVE) 12/12/18 18:40 U Methamphetamines Scrn NEGATIVE (NEGATIVE) 12/12/18 18:40 U Benzodiazepines Scrn NEGATIVE (NEGATIVE) 12/12/18 18:40 U Cocaine Metab Screen NEGATIVE (NEGATIVE) 12/12/18 18:40 U Cannabinoids Screen NEGATIVE (NEGATIVE) 12/12/18 18:40 Ethyl Alcohol < 10 mg/dL (0-10) 12/12/18 17:30 - Physical Exam Vitals and I&O: Vital Signs Temp 98.1 F 12/16/18 14:00 Pulse 72 12/17/18 08:51 Resp 18 12/16/18 14:00 BP 166/99 12/17/18 08:51 Pulse Ox 98 12/16/18 14:00 Intake & Output 12/16/18 12/17/18 12/17/18 18:59 06:59 18:59 Intake Total 1500 Balance 1500 Intake: Oral 1500 Other: # Voids 3 # Bowel Movements 0 Active Medications: Current Medications Acetaminophen (Tylenol) 650 mg PO Q4H PRN PRN Reason: pain/ fever>100 Al Hydrox/Mg Hydrox/Simethicone (Maalox) 30 ml PO Q4H PRN PRN Reason: gi upset Stop: 02/11/19 11:57 Amlodipine Besylate (Norvasc) 10 mg PO DAILY [facility] Stop: 02/12/19 08:59 Last Admin: 12/17/18 08:51 Dose: 10 mg Calcitriol (Rocaltrol) 0.25 mcg PO MWF [facility] Stop: 02/12/19 08:59 Last Admin: 12/16/18 08:45 Dose: 0.25 mcg Calcium/Vitamin D (Oscal W/Vitamin D) 1 tab PO BID [facility] Stop: 02/11/19 16:59 Last Admin: 12/17/18 08:50 Dose: 1 tab Dextrose (D50w) 50 ml IVP PRN PRN PRN Reason: BS below 70&not tolerate po Stop: 02/11/19 12:06 Dextrose (Glutose 40%) 18.75 gm PO PRN PRN PRN Reason: BS below 70 & tolerate po Stop: 02/11/19 12:06 Divalproex Sodium (Depakote Sprinkle) 125 mg PO Q12HR [facility]; Protocol Stop: 02/15/19 08:59 Docusate Sodium (Colace) 100 mg PO BID [facility] Stop: 02/11/19 16:59 Last Admin: 12/17/18 08:50 Dose: 100 mg Famotidine (Pepcid) 20 mg PO DAILY [facility] Stop: 02/12/19 08:59 Last Admin: 12/17/18 08:50 Dose: 20 mg Ferrous Sulfate (Iron) 325 mg PO BID [facility] Stop: 02/11/19 16:59 Last Admin: 12/17/18 08:51 Dose: 325 mg Fish Oil ([place] 3) 1,000 mg PO BID [facility] Stop: 02/11/19 16:59 Last Admin: 12/17/18 08:51 Dose: 1,000 mg Glucagon (Glucagen) 1 mg IM PRN PRN PRN Reason: BS below 70&dextrose ineffecti Stop: 02/11/19 12:06 Insulin Glargine (Lantus Insulin) 6 units SUBQ BID [facility] Stop: 02/11/19 16:59 Last Admin: 12/17/18 08:53 Dose: 6 units Insulin Human Lispro (Humalog Insulin Sliding Scale) 0 units SUBQ ACHS [facility]; Protocol Stop: 02/11/19 16:29 Last Admin: 12/17/18 06:37 Dose: Not Given Lorazepam (Ativan) 0.5 mg PO Q4HR PRN; Protocol PRN Reason: Anxiety Stop: 01/11/19 22:32 Last Admin: 12/17/18 08:52 Dose: 0.5 mg Losartan Potassium (Cozaar) 25 mg PO DAILY [facility] Stop: 02/12/19 08:59 Last Admin: 12/17/18 08:51 Dose: 25 mg Magnesium Hydroxide (Milk Of Magnesia) 30 ml PO HS PRN PRN Reason: Constipation Stop: 02/11/19 11:57 Memantine (Namenda) 5 mg PO DAILY [facility] Stop: 02/12/19 08:59 Last Admin: 12/17/18 08:50 Dose: 5 mg Multivitamins/Vitamin C (Theragran) 1 tab PO DAILY [facility] Stop: 02/12/19 08:59 Last Admin: 12/17/18 08:51 Dose: 1 tab Quetiapine Fumarate (Seroquel) 25 mg PO HS [facility]; Protocol Stop: 02/12/19 20:59 Last Admin: 12/16/18 20:47 Dose: 25 mg Quetiapine Fumarate (Seroquel) 50 mg PO HS [facility]; Protocol Stop: 02/15/19 20:59 Zolpidem Tartrate (Ambien) 5 mg PO HS PRN PRN Reason: Insomnia Stop: 02/10/19 22:32 Last Admin: 12/16/18 20:46 Dose: 5 mg General: demented HEENT: NC/AT, PERRLA, EOMI Neck: Supple, No JVD Lungs: CTAB Cardiovascular: RRR, Normal S1, Normal S2 Abdomen: soft, non-tender, globular, positive bowel sound Extremities: excoriation, contracture Neurological: no change Internal Medicine Assmt/Plan - Assessment Assessment: ASSESSMENT AND PLAN: Anemia, renal insufficiency, hypercholesterolemia, hypertension, diabetes, thrombocytopenia. bedbound - Plan Plan: PLAN: We will continue the patient on ADA diet and insulin sliding scale. We will continue with fingersticks before meals and at bedtime. We will briefly review the patient's medications. We will monitor for any signs or symptoms of hypoglycemia. Case was discussed with the patient as well as nursing staff. We will continue to follow closely Nutritional Asmnt/Malnutr-PDOC - Dietary Evaluation Malnutrition Findings (Please click <Entered> for more info): Nutritional Asmnt/Malnutrition Start: 12/16/18 11: 59 Text: Status: Complete Freq: Protocol: Document 12/16/18 15:30 LCHENG (Rec: 12/16/18 16:03 LCHENG [id number]) Nutritional Asmnt/Malnutrition Patient General Information Nutritional Screening Moderate Risk Diagnosis psychosis Pertinent Medical Hx/Surgical Hx HTN, dyslipidemia, dementia, bipolar, dementia Subjective Information Pt seen sitting on bed just finished 100% lunch. Per EMR, PO intake 100%. Current Diet Order/ Nutrition Support [facility] soft cardiac, NCS, CORNELIO Pertinent Medications oscal w/tiv D, colace, pepcid, iron, fish oil, lantus, humalog, theragran, seroquel Pertinent Labs 12/15-12/16 75-112 12/12 Cl 110, BUN 67, Cr 2.9, Glucose 119, Alb 3.4 Nutritional Hx/Data Height 6 ft 3 in Height (Calculated Centimeters) 190.5 Current Weight (lbs) 175 lb Weight (Calculated Kilograms) 79.4 Weight (Calculated Grams) 98140.7 [place] Body Weight 194 Body Mass Index (BMI) 21.9 Weight Status Approriate GI Symptoms GI Symptoms None Last BM none Difficult in: None Skin Integrity/Comment: MULTIPLE SCABS RIGHT LOWER EXTREMITY, DRY SKIN Current %PO Good (75-100%) Estimated Nutritional Goals BEE in Kcals: Using Current wt Calories/Kcals/Kg 25-30 Kcals Calculated 2568-4268 Protein: Using Current wt Protein g/k Protein Calculated 80 Fluid: ml 2000-2400ml (1ml/kcal0 Nutritional Problem No current Nutrition Prob Problem N/A Malnutrition Alert Is there a minimum of two criteria No selected? Query Text:Check all the applicable criteria. A minimum of two criteria are recommended for diagnosis of either severe or non-severe malnutrition. Malnutrition Related to Morbid Obesity Malnutrition related to morbid obesity No Intervention/Recommendation Comments 1. Continue with [facility] soft cardiac NCS, CORNELIO diet as ordered. 2. Monitor PO intake, wt, labs and skin integrity 3. F/U as low risk in 7 days Expected Outcomes/Goals Expected Outcomes/Goals 1. PO intake to meet at least 75% of nutritional needs. 2. Wt stability, skin to remain intact, labs to approach WNL.
--- NOTE | 2018-12-18 00:27 | Progress Notes ---
DATE: 12/17/[address] Serrato. SUBJECTIVE: The patient was up and about in his room. The patient was pleasant, smiling and laughing at times inappropriately. The patient stated that his name is Gerson. When asked for his last name, the patient repeated Gerson Nieto. The patient appeared to be confused. The patient was able to say how old he is. He was able to give his birthday. He was not able to say why he is here. The patient denied any agitation and aggression. The patient reported that he is eating and sleeping okay. When asked how many children he has, he said that he has children all over the [place]. The patient denied any auditory or visual hallucination or delusion. However, the patient appeared to be quite delusional. OBJECTIVE: The patient was cooperative and pleasant, but confused and appeared to be delusional. The staff reported that the patient had recurrent episodes of agitation and aggression and staff has to be very careful because the patient could be physically aggressive. Staff reported that the patient has been compliant with medications. The patient has been eating and sleeping okay. 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 Currently, the patient is on Seroquel 25 mg at bedtime, Ativan 0.5 mg q. 4 hours p.r.n., Ambien 5 mg at bedtime p.r.n., Namenda 5 mg daily, Ativan 0.5 mg q. 4 hours p.r.n. PLAN: We will increase Seroquel to 50 mg b.i.d. We will start the patient on Depakote Sprinkle 250 mg q. 12 hours for impulse control. We will monitor the patient's response to the medications. JOB# [id number] [facility]
--- NOTE | 2018-12-18 00:52 | Progress Notes ---
DATE: 12/16/2018 PSYCHOLOGY PROGRESS NOTE SUBJECTIVE: The patient is seen and is interviewed. Case is discussed with staff. The patient continues to present with irritability and is easily agitated. Staff reports the patient has had no inappropriate behavioral episodes, i.e., sexual gestures or comments. OBJECTIVE: Mood is irritable. Affect is constricted. Thought process is disorganized and confused. The patient did not answer questions about experiencing hallucinations or delusions. The patient's behavior is still impulsive. Staff reports the patient continues to have episodes of disrobing. ASSESSMENT AND PLAN: The patient's psychosis persists. We provided reality orientation, differentiation, and integration. We provided limit setting. We provided stress management to assist the patient to increase his frustration tolerance. We provided remotivation for the patient to become compliant and stay compliant with his care and treatment. We provided coping strategies for phase of life issues as well as for chronic severe mental illness. We provided multiple daily opportunities for the patient to verbally contract for safety as well as verbally contract for no inappropriate sexual behavior. We will follow up in 2 days to continue the present treatment if the patient is still admitted on the unit. JOB# [id number] [facility]
[2018-12-18] MEDS: INSULIN LISPRO SLIDING SCALE 100 UNITS/ML UNIT SUBQ SCH ×4 (06:36→20:45)
[2018-12-18] MEDS: Fish Oil 1,000 MG SGL PO SCH ×2 (08:43→17:46)
[2018-12-18] MEDS: Ferrous Sulfate 325 MG TAB PO SCH ×2 (08:45→17:46)
[2018-12-18] MEDS: Multivitamin Tab PO SCH (08:47)
[2018-12-18] MEDS: Calcium Carb/Vit D 500 mg/200 U Tab PO SCH ×2 (08:48→17:47)
[2018-12-18] MEDS: Insulin Glargine 100 units/ml 10ml Vial SUBQ SCH ×2 (09:00→17:48)
--- NOTE | 2018-12-18 16:04 | Internal Medicine Prog Note ---
Internal Medicine Subjective - Subjective Service Date: 12/18/18 Patient is:: asleep, eyes closed, in bed, denies any new complaints, confused Per staff patient has:: no adverse event, no episodes of fall, poor appetite, unstable gait, tolerating meds Internal Medicine Objective - Results Result Diagrams: 12/12/18 17:30 12/12/18 17:30 Recent Labs: Laboratory Last Values WBC 6.5 Th/cmm (4.8-10.8) 12/12/18 17:30 RBC 4.21 Mil/cmm (3.80-5.80) 12/12/18 17:30 Hgb 11.1 gm/dL (12-16) L 12/12/18 17:30 Hct 33.6 % (41.0-60) L 12/12/18 17:30 MCV 79.8 fl (80-99) L 12/12/18 17:30 MCH 26.4 pg (27.0-31.0) L 12/12/18 17: MCHC Differential 33.1 pg (28.0-36.0) 12/12/18 17:30 RDW 15.4 % (11.5-20.0) 12/12/18 17:30 Plt Count 116 Th/cmm (150-400) L 12/12/18 17:30 MPV 9.3 fl 12/12/18 17:30 Neutrophils % 60.1 % (40.0-80.0) 12/12/18 17:30 Lymphocytes % 22.6 % (20.0-50.0) 12/12/18 17:30 Monocytes % 12.1 % (2.0-10.0) H 12/12/18 17:30 Eosinophils % 4.6 % (0.0-5.0) 12/12/18 17:30 Basophils % 0.6 % (0.0-2.0) 12/12/18 17:30 Sodium 139 mEq/L (136-145) 12/12/18 17:30 Potassium 4.6 mEq/L (3.5-5.1) 12/12/18 17:30 Chloride 110 mEq/L (98-107) H 12/12/18 17:30 Carbon Dioxide 19.8 mEq/L (21.0-31.0) L 12/12/18 17:30 Anion Gap 13.8 (7.0-16.0) 12/12/18 17:30 BUN 67 mg/dL (7-25) H 12/12/18 17:30 Creatinine 2.9 mg/dL (0.7-1.3) H 12/12/18 17:30 Est GFR ( Amer) TNP 12/12/18 17:30 Est GFR (Non-Af Amer) TNP 12/12/18 17:30 BUN/Creatinine Ratio 23.1 12/12/18 17:30 Glucose 119 mg/dL (70-105) H 12/12/18 17:30 POC Glucose 145 MG/DL (70 - 105) H 12/17/18 19:59 Calcium 9.1 mg/dL (8.6-10.3) 12/12/18 17:30 Total Bilirubin 0.3 mg/dL (0.3-1.0) 12/12/18 17:30 AST 14 U/L (13-39) 12/12/18 17:30 ALT 14 U/L (7-52) 12/12/18 17:30 Alkaline Phosphatase 358 U/L (34-104) H 12/12/18 17:30 Troponin I 0.03 ng/mL (0.01-0.05) 12/12/18 17:30 Total Protein 6.2 gm/dL (6.0-8.3) 12/12/18 17:30 Albumin 3.4 gm/dL (4.2-5.5) L 12/12/18 17:30 Globulin 2.8 gm/dL 12/12/18 17:30 Albumin/Globulin Ratio 1.2 (1.0-1.8) 12/12/18 17:30 Triglycerides 56 mg/dL (<150) 12/12/18 17:30 Cholesterol 99 mg/dL (<200) 12/12/18 17:30 LDL Cholesterol Direct 44 mg/dL (75-193) L 12/12/18 17:30 HDL Cholesterol 40 mg/dL (23-92) 12/12/18 17:30 TSH 1.48 uIU/ml (0.34-5.60) 12/12/18 17:30 Urine Source CLEAN C 12/12/18 18:40 Urine Color YELLOW 12/12/18 18:40 Urine Clarity CLEAR (CLEAR) 12/12/18 18:40 Urine pH 6.0 (4.6 - 8.0) 12/12/18 18:40 Ur Specific [place] <= 1.005 (1.005-1.030) 12/12/18 18:40 Urine Protein NEGATIVE mg/dL (NEGATIVE) 12/12/18 18:40 Urine Glucose (UA) NEGATIVE mg/dL (NEGATIVE) 12/12/18 18:40 Urine Ketones NEGATIVE mg/dL (NEGATIVE) 12/12/18 18:40 Urine Blood NEGATIVE (NEGATIVE) 12/12/18 18:40 Urine Nitrate NEGATIVE (NEGATIVE) 12/12/18 18:40 Urine Bilirubin NEGATIVE (NEGATIVE) 12/12/18 18:40 Urine Urobilinogen 0.2 E.U./dL (0.2 - 1.0) 12/12/18 18:40 Ur Leukocyte Esterase SMALL (NEGATIVE) H 12/12/18 18:40 Urine RBC NONE SEEN /hpf (0-5) 12/12/18 18:40 Urine WBC 0-2 /hpf (0-5) 12/12/18 18:40 Ur Epithelial Cells NONE SEEN /lpf (FEW) 12/12/18 18:40 Urine Bacteria OCCASIONAL /hpf (NONE SEEN) 12/12/18 18:40 Salicylates < 25.0 mg/L (30.0-100.0) L 12/12/18 17:30 Urine Opiates Screen NEGATIVE (NEGATIVE) 12/12/18 18:40 Urine Methadone Screen NEGATIVE (NEGATIVE) 12/12/18 18:40 Acetaminophen < 10.0 ug/mL (10.0-30.0) L 12/12/18 17:30 Ur Barbiturates Screen NEGATIVE (NEGATIVE) 12/12/18 18:40 Ur Tricyclics Screen NEGATIVE (NEGATIVE) 12/12/18 18:40 Ur Phencyclidine Scrn NEGATIVE (NEGATIVE) 12/12/18 18:40 Amphetamines Screen NEGATIVE (NEGATIVE) 12/12/18 18:40 U Methamphetamines Scrn NEGATIVE (NEGATIVE) 12/12/18 18:40 U Benzodiazepines Scrn NEGATIVE (NEGATIVE) 12/12/18 18:40 U Cocaine Metab Screen NEGATIVE (NEGATIVE) 12/12/18 18:40 U Cannabinoids Screen NEGATIVE (NEGATIVE) 12/12/18 18:40 Ethyl Alcohol < 10 mg/dL (0-10) 12/12/18 17:30 - Physical Exam Vitals and I&O: Vital Signs Temp 97.6 F 12/17/18 14:00 Pulse 80 12/18/18 08:48 Resp 19 12/18/18 08:00 BP 120/80 12/18/18 08:48 Pulse Ox 97 12/17/18 14:00 Intake & Output 12/17/18 12/18/18 12/18/18 18:59 06:59 18:59 Intake Total 2200 480 Balance 2200 480 Intake: Oral 2200 480 Other: # Voids 4 2 # Bowel Movements 1 Active Medications: Current Medications Acetaminophen (Tylenol) 650 mg PO Q4H PRN PRN Reason: pain/ fever>100 Al Hydrox/Mg Hydrox/Simethicone (Maalox) 30 ml PO Q4H PRN PRN Reason: gi upset Stop: 02/11/19 11:57 Amlodipine Besylate (Norvasc) 10 mg PO DAILY [facility] Stop: 02/12/19 08:59 Last Admin: 12/18/18 08:48 Dose: 10 mg Calcitriol (Rocaltrol) 0.25 mcg PO MWF [facility] Stop: 02/12/19 08:59 Last Admin: 12/16/18 08:45 Dose: 0.25 mcg Calcium/Vitamin D (Oscal W/Vitamin D) 1 tab PO BID [facility] Stop: 02/11/19 16:59 Last Admin: 12/18/18 08:48 Dose: 1 tab Dextrose (D50w) 50 ml IVP PRN PRN PRN Reason: BS below 70&not tolerate po Stop: 02/11/19 12:06 Dextrose (Glutose 40%) 18.75 gm PO PRN PRN PRN Reason: BS below 70 & tolerate po Stop: 02/11/19 12:06 Divalproex Sodium (Depakote Sprinkle) 125 mg PO Q12HR [facility]; Protocol Stop: 02/15/19 08:59 Last Admin: 12/18/18 08:44 Dose: 125 mg Docusate Sodium (Colace) 100 mg PO BID [facility] Stop: 02/11/19 16:59 Last Admin: 12/18/18 08:44 Dose: 100 mg Famotidine (Pepcid) 20 mg PO DAILY [facility] Stop: 02/12/19 08:59 Last Admin: 12/18/18 08:47 Dose: 20 mg Ferrous Sulfate (Iron) 325 mg PO BID [facility] Stop: 02/11/19 16:59 Last Admin: 12/18/18 08:45 Dose: 325 mg Fish Oil ([place] 3) 1,000 mg PO BID [facility] Stop: 02/11/19 16:59 Last Admin: 12/18/18 08:43 Dose: 1,000 mg Glucagon (Glucagen) 1 mg IM PRN PRN PRN Reason: BS below 70&dextrose ineffecti Stop: 02/11/19 12:06 Insulin Glargine (Lantus Insulin) 6 units SUBQ BID [facility] Stop: 02/11/19 16:59 Last Admin: 12/17/18 16:57 Dose: 6 units Insulin Human Lispro (Humalog Insulin Sliding Scale) 0 units SUBQ ACHS [facility]; Protocol Stop: 02/11/19 16:29 Last Admin: 12/18/18 06:36 Dose: Not Given Lorazepam (Ativan) 0.5 mg PO Q4HR PRN; Protocol PRN Reason: Anxiety Stop: 01/11/19 22:32 Last Admin: 12/18/18 08:45 Dose: 0.5 mg Losartan Potassium (Cozaar) 25 mg PO DAILY [facility] Stop: 02/12/19 08:59 Last Admin: 12/18/18 08:45 Dose: 25 mg Magnesium Hydroxide (Milk Of Magnesia) 30 ml PO HS PRN PRN Reason: Constipation Stop: 02/11/19 11:57 Memantine (Namenda) 5 mg PO DAILY [facility] Stop: 02/12/19 08:59 Last Admin: 12/18/18 08:48 Dose: 5 mg Multivitamins/Vitamin C (Theragran) 1 tab PO DAILY [facility] Stop: 02/12/19 08:59 Last Admin: 12/18/18 08:47 Dose: 1 tab Quetiapine Fumarate (Seroquel) 50 mg PO Q12H [facility]; Protocol Stop: 02/16/19 09:11 Zolpidem Tartrate (Ambien) 5 mg PO HS PRN PRN Reason: Insomnia Stop: 02/10/19 22:32 Last Admin: 12/17/18 23:18 Dose: 5 mg General: demented HEENT: NC/AT, PERRLA, EOMI Neck: Supple, No JVD Lungs: CTAB Cardiovascular: RRR, Normal S1, Normal S2 Abdomen: soft, non-tender, globular, positive bowel sound Extremities: excoriation, contracture Neurological: no change Internal Medicine Assmt/Plan - Assessment Assessment: ASSESSMENT AND PLAN: Anemia, renal insufficiency, hypercholesterolemia, hypertension, diabetes, thrombocytopenia. bedbound - Plan Plan: PLAN: We will continue the patient on ADA diet and insulin sliding scale. We will continue with fingersticks before meals and at bedtime. We will briefly review the patient's medications. We will monitor for any signs or symptoms of hypoglycemia. Case was discussed with the patient as well as nursing staff. We will continue to follow closely Nutritional Asmnt/Malnutr-PDOC - Dietary Evaluation Malnutrition Findings (Please click <Entered> for more info): Nutritional Asmnt/Malnutrition Start: 12/16/18 11: 59 Text: Status: Complete Freq: Protocol: Document 12/16/18 15:30 LCHENG (Rec: 12/16/18 16:03 [email or web address] [id number]) Nutritional Asmnt/Malnutrition Patient General Information Nutritional Screening Moderate Risk Diagnosis psychosis Pertinent Medical Hx/Surgical Hx HTN, dyslipidemia, dementia, bipolar, dementia Subjective Information Pt seen sitting on bed just finished 100% lunch. Per EMR, PO intake 100%. Current Diet Order/ Nutrition Support [facility] soft cardiac, NCS, CORNELIO Pertinent Medications oscal w/tiv D, colace, pepcid, iron, fish oil, lantus, humalog, theragran, seroquel Pertinent Labs 12/15-12/16 75-112 12/12 Cl 110, BUN 67, Cr 2.9, Glucose 119, Alb 3.4 Nutritional Hx/Data Height 6 ft 3 in Height (Calculated Centimeters) 190.5 Current Weight (lbs) 175 lb Weight (Calculated Kilograms) 79.4 Weight (Calculated Grams) 21018.7 [place] Body Weight 194 Body Mass Index (BMI) 21.9 Weight Status Approriate GI Symptoms GI Symptoms None Last BM none Difficult in: None Skin Integrity/Comment: MULTIPLE SCABS RIGHT LOWER EXTREMITY, DRY SKIN Current %PO Good (75-100%) Estimated Nutritional Goals BEE in Kcals: Using Current wt Calories/Kcals/Kg 25-30 Kcals Calculated 7305-8184 Protein: Using Current wt Protein g/k Protein Calculated 80 Fluid: ml 2000-2400ml (1ml/kcal0 Nutritional Problem No current Nutrition Prob Problem N/A Malnutrition Alert Is there a minimum of two criteria No selected? Query Text:Check all the applicable criteria. A minimum of two criteria are recommended for diagnosis of either severe or non-severe malnutrition. Malnutrition Related to Morbid Obesity Malnutrition related to morbid obesity No Intervention/Recommendation Comments 1. Continue with [facility] soft cardiac NCS, CORNELIO diet as ordered. 2. Monitor PO intake, wt, labs and skin integrity 3. F/U as low risk in 7 days Expected Outcomes/Goals Expected Outcomes/Goals 1. PO intake to meet at least 75% of nutritional needs. 2. Wt stability, skin to remain intact, labs to approach WNL.
--- NOTE | 2018-12-18 22:26 | Progress Notes ---
DATE: 12/18/2018 SUBJECTIVE: The patient was resting in bed, alert, agitated. This designer writer was able to hear the patient yelling and screaming even before entering the room. The patient was screaming for no apparent reason. The patient appeared to be responding to internal stimuli. When asked if he had breakfast, the patient states that he does not need breakfast. The patient was not able to give any reason why he is yelling and screaming. The patient reported that he slept okay. The patient continued to be loud pretty much all the time during the interview. The patient did not attempt to get out of bed. OBJECTIVE: The patient is more agitated today. Staff reported that patient continued to be unpredictable and usually responding to internal stimuli causing him to be loud with yelling and screaming for no apparent reason. The patient has been cooperative with medication. ASSESSMENT: The patient continued to be quite delusional at this time responding to internal stimuli with episodes of yelling and screaming, talking to himself. PLAN: We will increase the patient's Seroquel to 50 mg q. 12 hours and monitor the patient's response to medication. JOB# [id number]
[2018-12-19] MEDS: INSULIN LISPRO SLIDING SCALE 100 UNITS/ML UNIT SUBQ SCH ×4 (06:33→21:08)
[2018-12-19] MEDS: Multivitamin Tab PO SCH (08:39)
[2018-12-19] MEDS: Ferrous Sulfate 325 MG TAB PO SCH ×2 (08:41→16:02)
[2018-12-19] MEDS: Fish Oil 1,000 MG SGL PO SCH ×2 (08:41→16:02)
[2018-12-19] MEDS: Calcium Carb/Vit D 500 mg/200 U Tab PO SCH ×2 (08:42→16:02)
[2018-12-19] MEDS: Insulin Glargine 100 units/ml 10ml Vial SUBQ SCH ×2 (08:48→17:03)
--- NOTE | 2018-12-19 16:53 | Internal Medicine Prog Note ---
Internal Medicine Subjective - Subjective Service Date: 12/19/18 Patient is:: asleep, eyes closed, in bed, denies any new complaints, confused Per staff patient has:: no adverse event, no episodes of fall, poor appetite, unstable gait, tolerating meds Internal Medicine Objective - Results Result Diagrams: 12/12/18 17:30 12/12/18 17:30 Recent Labs: Laboratory Last Values WBC 6.5 Th/cmm (4.8-10.8) 12/12/18 17:30 RBC 4.21 Mil/cmm (3.80-5.80) 12/12/18 17:30 Hgb 11.1 gm/dL (12-16) L 12/12/18 17:30 Hct 33.6 % (41.0-60) L 12/12/18 17:30 MCV 79.8 fl (80-99) L 12/12/18 17:30 MCH 26.4 pg (27.0-31.0) L 12/12/18 17: MCHC Differential 33.1 pg (28.0-36.0) 12/12/18 17:30 RDW 15.4 % (11.5-20.0) 12/12/18 17:30 Plt Count 116 Th/cmm (150-400) L 12/12/18 17:30 MPV 9.3 fl 12/12/18 17:30 Neutrophils % 60.1 % (40.0-80.0) 12/12/18 17:30 Lymphocytes % 22.6 % (20.0-50.0) 12/12/18 17:30 Monocytes % 12.1 % (2.0-10.0) H 12/12/18 17:30 Eosinophils % 4.6 % (0.0-5.0) 12/12/18 17:30 Basophils % 0.6 % (0.0-2.0) 12/12/18 17:30 Sodium 139 mEq/L (136-145) 12/12/18 17:30 Potassium 4.6 mEq/L (3.5-5.1) 12/12/18 17:30 Chloride 110 mEq/L (98-107) H 12/12/18 17:30 Carbon Dioxide 19.8 mEq/L (21.0-31.0) L 12/12/18 17:30 Anion Gap 13.8 (7.0-16.0) 12/12/18 17:30 BUN 67 mg/dL (7-25) H 12/12/18 17:30 Creatinine 2.9 mg/dL (0.7-1.3) H 12/12/18 17:30 Est GFR ( Amer) TNP 12/12/18 17:30 Est GFR (Non-Af Amer) TNP 12/12/18 17:30 BUN/Creatinine Ratio 23.1 12/12/18 17:30 Glucose 119 mg/dL (70-105) H 12/12/18 17:30 POC Glucose 118 MG/DL (70-105) H 12/18/18 17:04 Calcium 9.1 mg/dL (8.6-10.3) 12/12/18 17:30 Total Bilirubin 0.3 mg/dL (0.3-1.0) 12/12/18 17:30 AST 14 U/L (13-39) 12/12/18 17:30 ALT 14 U/L (7-52) 12/12/18 17:30 Alkaline Phosphatase 358 U/L (34-104) H 12/12/18 17:30 Troponin I 0.03 ng/mL (0.01-0.05) 12/12/18 17:30 Total Protein 6.2 gm/dL (6.0-8.3) 12/12/18 17:30 Albumin 3.4 gm/dL (4.2-5.5) L 12/12/18 17:30 Globulin 2.8 gm/dL 12/12/18 17:30 Albumin/Globulin Ratio 1.2 (1.0-1.8) 12/12/18 17:30 Triglycerides 56 mg/dL (<150) 12/12/18 17:30 Cholesterol 99 mg/dL (<200) 12/12/18 17:30 LDL Cholesterol Direct 44 mg/dL (75-193) L 12/12/18 17:30 HDL Cholesterol 40 mg/dL (23-92) 12/12/18 17:30 TSH 1.48 uIU/ml (0.34-5.60) 12/12/18 17:30 Urine Source CLEAN C 12/12/18 18:40 Urine Color YELLOW 12/12/18 18:40 Urine Clarity CLEAR (CLEAR) 12/12/18 18:40 Urine pH 6.0 (4.6 - 8.0) 12/12/18 18:40 Ur Specific [place] <= 1.005 (1.005-1.030) 12/12/18 18:40 Urine Protein NEGATIVE mg/dL (NEGATIVE) 12/12/18 18:40 Urine Glucose (UA) NEGATIVE mg/dL (NEGATIVE) 12/12/18 18:40 Urine Ketones NEGATIVE mg/dL (NEGATIVE) 12/12/18 18:40 Urine Blood NEGATIVE (NEGATIVE) 12/12/18 18:40 Urine Nitrate NEGATIVE (NEGATIVE) 12/12/18 18:40 Urine Bilirubin NEGATIVE (NEGATIVE) 12/12/18 18:40 Urine Urobilinogen 0.2 E.U./dL (0.2 - 1.0) 12/12/18 18:40 Ur Leukocyte Esterase SMALL (NEGATIVE) H 12/12/18 18:40 Urine RBC NONE SEEN /hpf (0-5) 12/12/18 18:40 Urine WBC 0-2 /hpf (0-5) 12/12/18 18:40 Ur Epithelial Cells NONE SEEN /lpf (FEW) 12/12/18 18:40 Urine Bacteria OCCASIONAL /hpf (NONE SEEN) 12/12/18 18:40 Salicylates < 25.0 mg/L (30.0-100.0) L 12/12/18 17:30 Urine Opiates Screen NEGATIVE (NEGATIVE) 12/12/18 18:40 Urine Methadone Screen NEGATIVE (NEGATIVE) 12/12/18 18:40 Acetaminophen < 10.0 ug/mL (10.0-30.0) L 12/12/18 17:30 Ur Barbiturates Screen NEGATIVE (NEGATIVE) 12/12/18 18:40 Ur Tricyclics Screen NEGATIVE (NEGATIVE) 12/12/18 18:40 Ur Phencyclidine Scrn NEGATIVE (NEGATIVE) 12/12/18 18:40 Amphetamines Screen NEGATIVE (NEGATIVE) 12/12/18 18:40 U Methamphetamines Scrn NEGATIVE (NEGATIVE) 12/12/18 18:40 U Benzodiazepines Scrn NEGATIVE (NEGATIVE) 12/12/18 18:40 U Cocaine Metab Screen NEGATIVE (NEGATIVE) 12/12/18 18:40 U Cannabinoids Screen NEGATIVE (NEGATIVE) 04/15/19 18:40 Ethyl Alcohol < 10 mg/dL (0-10) 12/12/18 17:30 RPR NONREACTIVE (NONREACTIVE) 12/12/18 17:30 - Physical Exam Vitals and I&O: Vital Signs Temp 98.2 F 12/19/18 14:00 Pulse 68 12/19/18 14:00 Resp 20 12/19/18 14:00 BP 156/69 12/19/18 14:00 Pulse Ox 98 12/19/18 14:00 Intake & Output 12/18/18 12/19/18 12/19/18 18:59 06:59 18:59 Intake Total 240 Balance 240 Weight (lbs) 175 lb Intake: Oral 240 Other: # Voids 3 # Bowel Movements 0 Weight Source Bedscale Active Medications: Current Medications Acetaminophen (Tylenol) 650 mg PO Q4H PRN PRN Reason: pain/ fever>100 Al Hydrox/Mg Hydrox/Simethicone (Maalox) 30 ml PO Q4H PRN PRN Reason: gi upset Stop: 02/11/19 11:57 Amlodipine Besylate (Norvasc) 10 mg PO DAILY [facility] Stop: 02/12/19 08:59 Last Admin: 12/19/18 08:42 Dose: 10 mg Calcitriol (Rocaltrol) 0.25 mcg PO MWF [facility] Stop: 02/12/19 08:59 Last Admin: 12/19/18 08:39 Dose: 0.25 mcg Calcium/Vitamin D (Oscal W/Vitamin D) 1 tab PO BID [facility] Stop: 02/11/19 16:59 Last Admin: 12/19/18 16:02 Dose: 1 tab Dextrose (D50w) 50 ml IVP PRN PRN PRN Reason: BS below 70&not tolerate po Stop: 02/11/19 12:06 Dextrose (Glutose 40%) 18.75 gm PO PRN PRN PRN Reason: BS below 70 & tolerate po Stop: 02/11/19 12:06 Divalproex Sodium (Depakote Sprinkle) 125 mg PO Q12HR [facility]; Protocol Stop: 02/15/19 08:59 Last Admin: 12/19/18 08:39 Dose: 125 mg Docusate Sodium (Colace) 100 mg PO BID [facility] Stop: 02/11/19 16:59 Last Admin: 12/19/18 16:02 Dose: 100 mg Famotidine (Pepcid) 20 mg PO DAILY [facility] Stop: 02/12/19 08:59 Last Admin: 12/19/18 08:39 Dose: 20 mg Ferrous Sulfate (Iron) 325 mg PO BID [facility] Stop: 02/11/19 16:59 Last Admin: 12/19/18 16:02 Dose: 325 mg Fish Oil ([place] 3) 1,000 mg PO BID [facility] Stop: 02/11/19 16:59 Last Admin: 12/19/18 16:02 Dose: 1,000 mg Glucagon (Glucagen) 1 mg IM PRN PRN PRN Reason: BS below 70&dextrose ineffecti Stop: 02/11/19 12:06 Insulin Glargine (Lantus Insulin) 6 units SUBQ BID [facility] Stop: 02/11/19 16:59 Last Admin: 12/19/18 08:48 Dose: 6 units Insulin Human Lispro (Humalog Insulin Sliding Scale) 0 units SUBQ ACHS [facility]; Protocol Stop: 02/11/19 16:29 Last Admin: 12/19/18 16:26 Dose: Not Given Lorazepam (Ativan) 0.5 mg PO Q4HR PRN; Protocol PRN Reason: Anxiety Stop: 01/11/19 22:32 Last Admin: 12/19/18 13:33 Dose: 0.5 mg Losartan Potassium (Cozaar) 25 mg PO DAILY [facility] Stop: 02/12/19 08:59 Last Admin: 12/19/18 08:39 Dose: 25 mg Magnesium Hydroxide (Milk Of Magnesia) 30 ml PO HS PRN PRN Reason: Constipation Stop: 02/11/19 11:57 Memantine (Namenda) 5 mg PO DAILY [facility] Stop: 02/12/19 08:59 Last Admin: 12/19/18 08:42 Dose: 5 mg Multivitamins/Vitamin C (Theragran) 1 tab PO DAILY [facility] Stop: 02/12/19 08:59 Last Admin: 12/19/18 08:39 Dose: 1 tab Quetiapine Fumarate (Seroquel) 50 mg PO Q12H [facility]; Protocol Stop: 02/16/19 09:11 Last Admin: 12/19/18 08:41 Dose: 50 mg Zolpidem Tartrate (Ambien) 5 mg PO HS PRN PRN Reason: Insomnia Stop: 02/10/19 22:32 Last Admin: 12/18/18 20:47 Dose: 5 mg General: demented HEENT: NC/AT, PERRLA, EOMI Neck: Supple, No JVD Lungs: CTAB Cardiovascular: RRR, Normal S1, Normal S2 Abdomen: soft, non-tender, globular, positive bowel sound Extremities: excoriation, contracture Neurological: no change Internal Medicine Assmt/Plan - Assessment Assessment: ASSESSMENT AND PLAN: Anemia, renal insufficiency, hypercholesterolemia, hypertension, diabetes, thrombocytopenia. bedbound - Plan Plan: PLAN: We will continue the patient on ADA diet and insulin sliding scale. We will continue with fingersticks before meals and at bedtime. We will briefly review the patient's medications. We will monitor for any signs or symptoms of hypoglycemia. Case was discussed with the patient as well as nursing staff. We will continue to follow closely Nutritional Asmnt/Malnutr-PDOC - Dietary Evaluation Malnutrition Findings (Please click <Entered> for more info): Nutritional Asmnt/Malnutrition Start: 12/16/18 11: 59 Text: Status: Complete Freq: Protocol: Document 12/16/18 15:30 LCHENG (Rec: 12/16/18 16:03 LCHENG [id number]) Nutritional Asmnt/Malnutrition Patient General Information Nutritional Screening Moderate Risk Diagnosis psychosis Pertinent Medical Hx/Surgical Hx HTN, dyslipidemia, dementia, bipolar, dementia Subjective Information Pt seen sitting on bed just finished 100% lunch. Per EMR, PO intake 100%. Current Diet Order/ Nutrition Support [facility], NCS, CORNELIO Pertinent Medications oscal w/tiv D, colace, pepcid, iron, fish oil, lantus, humalog, theragran, seroquel Pertinent Labs 12/15-12/16 75-112 12/12 Cl 110, BUN 67, Cr 2.9, Glucose 119, Alb 3.4 Nutritional Hx/Data Height 6 ft 3 in Height (Calculated Centimeters) 190.5 Current Weight (lbs) 175 lb Weight (Calculated Kilograms) 79.4 Weight (Calculated Grams) 14880.7 [place] Body Weight 194 Body Mass Index (BMI) 21.9 Weight Status Approriate GI Symptoms GI Symptoms None Last BM none Difficult in: None Skin Integrity/Comment: MULTIPLE SCABS RIGHT LOWER EXTREMITY, DRY SKIN Current %PO Good (75-100%) Estimated Nutritional Goals BEE in Kcals: Using Current wt Calories/Kcals/Kg 25-30 Kcals Calculated 6340-9373 Protein: Using Current wt Protein g/k Protein Calculated 80 Fluid: ml 2000-2400ml (1ml/kcal0 Nutritional Problem No current Nutrition Prob Problem N/A Malnutrition Alert Is there a minimum of two criteria No selected? Query Text:Check all the applicable criteria. A minimum of two criteria are recommended for diagnosis of either severe or non-severe malnutrition. Malnutrition Related to Morbid Obesity Malnutrition related to morbid obesity No Intervention/Recommendation Comments 1. Continue with [facility] NCS, CORNELIO diet as ordered. 2. Monitor PO intake, wt, labs and skin integrity 3. F/U as low risk in 7 days Expected Outcomes/Goals Expected Outcomes/Goals 1. PO intake to meet at least 75% of nutritional needs. 2. Wt stability, skin to remain intact, labs to approach WNL.
--- NOTE | 2018-12-20 03:16 | Progress Notes ---
DATE: 12/19/2018 PSYCHIATRIC PROGRESS NOTE SUBJECTIVE: Staff was spoken to. The patient is interviewed. Mood is noted to be less irritable. Insight and judgment are noted to be improving. Impulse control seems to be fair. No side effects to the medications are noted. No behavioral problems are noted. The patient is currently on 50 mg twice a day of the Seroquel along with 125 mg twice a day of the Depakote and has been able to tolerate the medication. ASSESSMENT: The patient's impulsivity is coming under control. PLAN: To continue the patient with the supportive therapy. I encouraged the patient to verbalize the concerns rather than to act out. JOB# [id number]
[2018-12-20] MEDS: INSULIN LISPRO SLIDING SCALE 100 UNITS/ML UNIT SUBQ SCH ×3 (06:41→16:34)
[2018-12-20] MEDS: Fish Oil 1,000 MG SGL PO SCH ×2 (08:50→16:07)
[2018-12-20] MEDS: Multivitamin Tab PO SCH (08:50)
[2018-12-20] MEDS: Ferrous Sulfate 325 MG TAB PO SCH ×2 (08:50→16:07)
[2018-12-20] MEDS: Calcium Carb/Vit D 500 mg/200 U Tab PO SCH ×2 (08:51→16:07)
[2018-12-20] MEDS: Insulin Glargine 100 units/ml 10ml Vial SUBQ SCH ×2 (08:55→17:07)
--- NOTE | 2018-12-20 14:04 | Internal Medicine Prog Note ---
Internal Medicine Subjective - Subjective Service Date: 12/20/18 Patient is:: asleep, eyes closed, in bed, denies any new complaints, confused Per staff patient has:: no adverse event, no episodes of fall, poor appetite, unstable gait, tolerating meds Internal Medicine Objective - Results Result Diagrams: 12/12/18 17:30 12/12/18 17:30 Recent Labs: Laboratory Last Values WBC 6.5 Th/cmm (4.8-10.8) 12/12/18 17:30 RBC 4.21 Mil/cmm (3.80-5.80) 12/12/18 17:30 Hgb 11.1 gm/dL (12-16) L 12/12/18 17:30 Hct 33.6 % (41.0-60) L 12/12/18 17:30 MCV 79.8 fl (80-99) L 12/12/18 17:30 MCH 26.4 pg (27.0-31.0) L 12/12/18 17: MCHC Differential 33.1 pg (28.0-36.0) 12/12/18 17:30 RDW 15.4 % (11.5-20.0) 12/12/18 17:30 Plt Count 116 Th/cmm (150-400) L 12/12/18 17:30 MPV 9.3 fl 12/12/18 17:30 Neutrophils % 60.1 % (40.0-80.0) 12/12/18 17:30 Lymphocytes % 22.6 % (20.0-50.0) 12/12/18 17:30 Monocytes % 12.1 % (2.0-10.0) H 12/12/18 17:30 Eosinophils % 4.6 % (0.0-5.0) 12/12/18 17:30 Basophils % 0.6 % (0.0-2.0) 12/12/18 17:30 Sodium 139 mEq/L (136-145) 12/12/18 17:30 Potassium 4.6 mEq/L (3.5-5.1) 12/12/18 17:30 Chloride 110 mEq/L (98-107) H 12/12/18 17:30 Carbon Dioxide 19.8 mEq/L (21.0-31.0) L 12/12/18 17:30 Anion Gap 13.8 (7.0-16.0) 12/12/18 17:30 BUN 67 mg/dL (7-25) H 12/12/18 17:30 Creatinine 2.9 mg/dL (0.7-1.3) H 12/12/18 17:30 Est GFR ( Amer) TNP 12/12/18 17:30 Est GFR (Non-Af Amer) TNP 12/12/18 17:30 BUN/Creatinine Ratio 23.1 12/12/18 17:30 Glucose 119 mg/dL (70-105) H 12/12/18 17:30 POC Glucose 114 MG/DL (70 - 105) H 12/20/18 11:42 Calcium 9.1 mg/dL (8.6-10.3) 12/12/18 17:30 Total Bilirubin 0.3 mg/dL (0.3-1.0) 12/12/18 17:30 AST 14 U/L (13-39) 12/12/18 17:30 ALT 14 U/L (7-52) 12/12/18 17:30 Alkaline Phosphatase 358 U/L (34-104) H 12/12/18 17:30 Troponin I 0.03 ng/mL (0.01-0.05) 12/12/18 17:30 Total Protein 6.2 gm/dL (6.0-8.3) 12/12/18 17:30 Albumin 3.4 gm/dL (4.2-5.5) L 12/12/18 17:30 Globulin 2.8 gm/dL 12/12/18 17:30 Albumin/Globulin Ratio 1.2 (1.0-1.8) 12/12/18 17:30 Triglycerides 56 mg/dL (<150) 12/12/18 17:30 Cholesterol 99 mg/dL (<200) 12/12/18 17:30 LDL Cholesterol Direct 44 mg/dL (75-193) L 12/12/18 17:30 HDL Cholesterol 40 mg/dL (23-92) 12/12/18 17:30 TSH 1.48 uIU/ml (0.34-5.60) 12/12/18 17:30 Urine Source CLEAN C 12/12/18 18:40 Urine Color YELLOW 12/12/18 18:40 Urine Clarity CLEAR (CLEAR) 12/12/18 18:40 Urine pH 6.0 (4.6 - 8.0) 12/12/18 18:40 Ur Specific [place] <= 1.005 (1.005-1.030) 12/12/18 18:40 Urine Protein NEGATIVE mg/dL (NEGATIVE) 12/12/18 18:40 Urine Glucose (UA) NEGATIVE mg/dL (NEGATIVE) 12/12/18 18:40 Urine Ketones NEGATIVE mg/dL (NEGATIVE) 12/12/18 18:40 Urine Blood NEGATIVE (NEGATIVE) 12/12/18 18:40 Urine Nitrate NEGATIVE (NEGATIVE) 12/12/18 18:40 Urine Bilirubin NEGATIVE (NEGATIVE) 12/12/18 18:40 Urine Urobilinogen 0.2 E.U./dL (0.2 - 1.0) 12/12/18 18:40 Ur Leukocyte Esterase SMALL (NEGATIVE) H 12/12/18 18:40 Urine RBC NONE SEEN /hpf (0-5) 12/12/18 18:40 Urine WBC 0-2 /hpf (0-5) 12/12/18 18:40 Ur Epithelial Cells NONE SEEN /lpf (FEW) 12/12/18 18:40 Urine Bacteria OCCASIONAL /hpf (NONE SEEN) 12/12/18 18:40 Salicylates < 25.0 mg/L (30.0-100.0) L 12/12/18 17:30 Urine Opiates Screen NEGATIVE (NEGATIVE) 12/12/18 18:40 Urine Methadone Screen NEGATIVE (NEGATIVE) 12/12/18 18:40 Acetaminophen < 10.0 ug/mL (10.0-30.0) L 12/12/18 17:30 Ur Barbiturates Screen NEGATIVE (NEGATIVE) 12/12/18 18:40 Ur Tricyclics Screen NEGATIVE (NEGATIVE) 12/12/18 18:40 Ur Phencyclidine Scrn NEGATIVE (NEGATIVE) 12/12/18 18:40 Amphetamines Screen NEGATIVE (NEGATIVE) 12/12/18 18:40 U Methamphetamines Scrn NEGATIVE (NEGATIVE) 12/12/18 18:40 U Benzodiazepines Scrn NEGATIVE (NEGATIVE) 12/12/18 18:40 U Cocaine Metab Screen NEGATIVE (NEGATIVE) 12/12/18 18:40 U Cannabinoids Screen NEGATIVE (NEGATIVE) 12/12/18 18:40 Ethyl Alcohol < 10 mg/dL (0-10) 12/12/18 17:30 RPR NONREACTIVE (NONREACTIVE) 12/12/18 17:30 - Physical Exam Vitals and I&O: Vital Signs Temp 98.2 F 12/19/18 14:00 Pulse 70 12/20/18 08:51 Resp 20 12/19/18 14:00 BP 116/74 12/20/18 08:51 Pulse Ox 98 12/19/18 14:00 Intake & Output 12/19/18 12/20/18 12/20/18 18:59 06:59 18:59 Intake Total 1000 Balance 1000 Intake: Oral 1000 Other: # Voids 4 # Bowel Movements 1 Active Medications: Current Medications Acetaminophen (Tylenol) 650 mg PO Q4H PRN PRN Reason: pain/ fever>100 Al Hydrox/Mg Hydrox/Simethicone (Maalox) 30 ml PO Q4H PRN PRN Reason: gi upset Stop: 02/11/19 11:57 Amlodipine Besylate (Norvasc) 10 mg PO DAILY [facility] Stop: 02/12/19 08:59 Last Admin: 12/20/18 08:51 Dose: 10 mg Calcitriol (Rocaltrol) 0.25 mcg PO MWF [facility] Stop: 02/12/19 08:59 Last Admin: 12/19/18 08:39 Dose: 0.25 mcg Calcium/Vitamin D (Oscal W/Vitamin D) 1 tab PO BID [facility] Stop: 02/11/19 16:59 Last Admin: 12/20/18 08:51 Dose: 1 tab Dextrose (D50w) 50 ml IVP PRN PRN PRN Reason: BS below 70&not tolerate po Stop: 02/11/19 12:06 Dextrose (Glutose 40%) 18.75 gm PO PRN PRN PRN Reason: BS below 70 & tolerate po Stop: 02/11/19 12:06 Divalproex Sodium (Depakote Sprinkle) 125 mg PO Q12HR [facility]; Protocol Stop: 02/15/19 08:59 Last Admin: 12/20/18 08:50 Dose: 125 mg Docusate Sodium (Colace) 100 mg PO BID [facility] Stop: 02/11/19 16:59 Last Admin: 12/20/18 08:50 Dose: 100 mg Famotidine (Pepcid) 20 mg PO DAILY [facility] Stop: 02/12/19 08:59 Last Admin: 12/20/18 08:51 Dose: 20 mg Ferrous Sulfate (Iron) 325 mg PO BID [facility] Stop: 02/11/19 16:59 Last Admin: 12/20/18 08:50 Dose: 325 mg Fish Oil ([place] 3) 1,000 mg PO BID [facility] Stop: 02/11/19 16:59 Last Admin: 12/20/18 08:50 Dose: 1,000 mg Glucagon (Glucagen) 1 mg IM PRN PRN PRN Reason: BS below 70&dextrose ineffecti Stop: 02/11/19 12:06 Insulin Glargine (Lantus Insulin) 6 units SUBQ BID [facility] Stop: 02/11/19 16:59 Last Admin: 12/20/18 08:55 Dose: 6 units Insulin Human Lispro (Humalog Insulin Sliding Scale) 0 units SUBQ ACHS [facility]; Protocol Stop: 02/11/19 16:29 Last Admin: 12/20/18 11:46 Dose: Not Given Lorazepam (Ativan) 0.5 mg PO Q4HR PRN; Protocol PRN Reason: Anxiety Stop: 01/11/19 22:32 Last Admin: 12/19/18 21:08 Dose: 0.5 mg Losartan Potassium (Cozaar) 25 mg PO DAILY [facility] Stop: 02/12/19 08:59 Last Admin: 12/20/18 08:51 Dose: 25 mg Magnesium Hydroxide (Milk Of Magnesia) 30 ml PO HS PRN PRN Reason: Constipation Stop: 02/11/19 11:57 Memantine (Namenda) 5 mg PO DAILY [facility] Stop: 02/12/19 08:59 Last Admin: 12/20/18 08:50 Dose: 5 mg Multivitamins/Vitamin C (Theragran) 1 tab PO DAILY [facility] Stop: 02/12/19 08:59 Last Admin: 12/20/18 08:50 Dose: 1 tab Quetiapine Fumarate (Seroquel) 50 mg PO Q12H [facility]; Protocol Stop: 02/16/19 09:11 Last Admin: 12/20/18 08:51 Dose: 50 mg Zolpidem Tartrate (Ambien) 5 mg PO HS PRN PRN Reason: Insomnia Stop: 02/10/19 22:32 Last Admin: 12/19/18 21:08 Dose: 5 mg General: demented HEENT: NC/AT, PERRLA, EOMI Neck: Supple, No JVD Lungs: CTAB Cardiovascular: RRR, Normal S1, Normal S2 Abdomen: soft, non-tender, globular, positive bowel sound Extremities: excoriation, contracture Neurological: no change Internal Medicine Assmt/Plan - Assessment Assessment: ASSESSMENT AND PLAN: Anemia, renal insufficiency, hypercholesterolemia, hypertension, diabetes, thrombocytopenia. bedbound - Plan Plan: PLAN: We will continue the patient on ADA diet and insulin sliding scale. We will continue with fingersticks before meals and at bedtime. We will briefly review the patient's medications. We will monitor for any signs or symptoms of hypoglycemia. Case was discussed with the patient as well as nursing staff. We will continue to follow closely Nutritional Asmnt/Malnutr-PDOC - Dietary Evaluation Malnutrition Findings (Please click <Entered> for more info): Nutritional Asmnt/Malnutrition Start: 12/16/18 11: 59 Text: Status: Complete Freq: Protocol: Document 12/16/18 15:30 LCHENG (Rec: 12/16/18 16:03 LCHENG [id number]) Nutritional Asmnt/Malnutrition Patient General Information Nutritional Screening Moderate Risk Diagnosis psychosis Pertinent Medical Hx/Surgical Hx HTN, dyslipidemia, dementia, bipolar, dementia Subjective Information Pt seen sitting on bed just finished 100% lunch. Per EMR, PO intake 100%. Current Diet Order/ Nutrition Support [facility], NCS, CORNELIO Pertinent Medications oscal w/tiv D, colace, pepcid, iron, fish oil, lantus, humalog, theragran, seroquel Pertinent Labs 12/15-12/16 75-112 12/12 Cl 110, BUN 67, Cr 2.9, Glucose 119, Alb 3.4 Nutritional Hx/Data Height 6 ft 3 in Height (Calculated Centimeters) 190.5 Current Weight (lbs) 175 lb Weight (Calculated Kilograms) 79.4 Weight (Calculated Grams) 61995.7 [place] Body Weight 194 Body Mass Index (BMI) 21.9 Weight Status Approriate GI Symptoms GI Symptoms None Last BM none Difficult in: None Skin Integrity/Comment: MULTIPLE SCABS RIGHT LOWER EXTREMITY, DRY SKIN Current %PO Good (75-100%) Estimated Nutritional Goals BEE in Kcals: Using Current wt Calories/Kcals/Kg 25-30 Kcals Calculated 1999-8355 Protein: Using Current wt Protein g/k Protein Calculated 80 Fluid: ml 2000-2400ml (1ml/kcal0 Nutritional Problem No current Nutrition Prob Problem N/A Malnutrition Alert Is there a minimum of two criteria No selected? Query Text:Check all the applicable criteria. A minimum of two criteria are recommended for diagnosis of either severe or non-severe malnutrition. Malnutrition Related to Morbid Obesity Malnutrition related to morbid obesity No Intervention/Recommendation Comments 1. Continue with [facility] cardiac NCS, CORNELIO diet as ordered. 2. Monitor PO intake, wt, labs and skin integrity 3. F/U as low risk in 7 days Expected Outcomes/Goals Expected Outcomes/Goals 1. PO intake to meet at least 75% of nutritional needs. 2. Wt stability, skin to remain intact, labs to approach WNL.
--- NOTE | 2018-12-20 21:54 | Progress Notes ---
DATE: 12/19/2018 PSYCHOLOGY PROGRESS NOTE SUBJECTIVE: The patient is seen in his room. The patient is sitting up eating lunch. The patient is irritable and angry. The patient stated that he believes this technical publications writer is stealing his food and to get the out of the room. Impulse control is poor. The patient has been using profane language. The staff reports the patient has had 1 previous minor flareup, but is tolerating his medication and is compliant with behavioral redirection. OBJECTIVE: Mood is irritable. Affect is constricted. Thought process shows to be confused. The patient did not answer questions about suicidal or homicidal ideation, plan, or intention. He did not answer questions about experiencing auditory or visual hallucinations or delusions. The patient's behavior has been mostly compliant with his care and treatment with 1-2 anger episodes. ASSESSMENT AND PLAN: Impulsivity is improving. The patient is most likely approaching baseline. We provided de-escalation and limit setting. We provided reality integration. We encouraged the patient to verbalize his concerns versus acting out to demonstrate emotional and self-regulation. We provided coping strategies for chronic severe mental illness as well as for phase of life issues. We will follow up in 2 days if the patient remains admitted on the unit. The staff indicates the patient may discharge today. JOB# [id number] ODILIA
--- NOTE | 2018-12-21 04:04 | Progress Notes ---
DATE: 12/20/2018 PSYCHIATRIC PROGRESS NOTE SUBJECTIVE: Staff was spoken to. The patient is interviewed. Mood is noted to be anxious. Affect is appropriate. The patient is not suicidal or homicidal. Insight and judgment are noted to be improving. Impulse control seems to be fair. No side effects to the medications are noted. The patient has been able to verbalize the concerns rather than to act out. ASSESSMENT: The patient is stabilizing. PLAN: To discharge the patient today for followup on an outpatient basis. [facility]# [id number]
--- NOTE | 2018-12-25 20:50 | Discharge Summary ---
DATE OF DISCHARGE: 12/20/2018 PSYCHIATRIC DISCHARGE SUMMARY IDENTIFYING DATA: The patient is a resident of the longterm facility. JUSTIFICATION OF HOSPITALIZATION: The patient is on a conservatorship and admitted over here for acute agitation and inappropriate behavior. CHIEF COMPLAINT: "I don't care, I need to go home." DIAGNOSES AT THE TIME OF ADMISSION: AXIS IA: Psychotic disorder, not otherwise specified. AXIS IB. Dementia and behavioral changes secondary to dementia. AXIS II: None. AXIS III: As per Dr. Sabillon. HISTORY OF PRESENT ILLNESS: Please refer to the 12/13/2018 dictation done by me. HOSPITAL COURSE AND RESPONSE TO TREATMENT: The patient has been observed on inpatient unit, provided with supportive psychotherapy. The patient has been closely monitored. Encouraged to verbalize the concerns rather than to act out. The patient has been placed on the ____ acid 125 mg for his impulsive and aggressive behavior. The patient has been placed on the Seroquel, which was gradually increased to 50 mg at bedtime. With these medications, the patient was observed and reported to be doing fairly well. The patient was finally discharged with recommendation that he is going to be seeking treatment on an outpatient basis. MENTAL STATUS EXAMINATION AT THE TIME OF DISCHARGE: Noted to be stable and the patient is not presenting as a threat to self or others at the time of the discharge. CONDITION AT THE TIME OF THE DISCHARGE: For this 73-year-old male is within normal limits. JOB# [id number]
== END 2018-12-20 18:59 | DRG 885 ==
LOC: ER 16:56 → GERO2 20:00
DX: F29 Unspecified psychosis not due to a substance or known physiological condition (principal); F02.81 Dementia in other diseases classified elsewhere, unspecified severity, with behavioral disturbance; I10 Essential (primary) hypertension; F20.0 Paranoid schizophrenia; E78.5 Hyperlipidemia, unspecified; E86.0 Dehydration; E11.9 Type 2 diabetes mellitus without complications; E78.00 Pure hypercholesterolemia, unspecified; D64.9 Anemia, unspecified; N28.9 Disorder of kidney and ureter, unspecified; D69.6 Thrombocytopenia, unspecified; G30.9 Alzheimer's disease, unspecified; F63.9 Impulse disorder, unspecified; Z79.4 Long term (current) use of insulin; Z74.01 Bed confinement status
CPT/HCPCS: 36415-UA; 80053-TC; 80061-TC; 80307; 80320-TC; 80329-TC; 81001-TC; 82948-90; 83036-90; 84443-TC; 84484-TC; 85025-TC; 86592-TC; 93005; 96379; J0696; J1815; J7030; Z7610